=== PATIENT | male | born 1960 | race Caucasian/White ===

== ENCOUNTER 2016-10-22 07:24 | Emergency (ER) | payer OTHER ==
[~2016-10-22] VITALS: Ht 177.8 cm; Wt 81.4 kg
[~2016-10-22 07:24] MED LIST: ADAL40KI SQ; CHOL1000 PO; HYDR-4079 PO; METR-163 PO
[2016-10-22 07:27] VITALS: TEMP 36.7; Ht 177.8 cm; Wt 81.4 kg
[2016-10-22] MEDS ORDERED: HYDROmorphone INJ 1 MG/ML SYR IV STA (07:40)
[2016-10-22] MEDS ORDERED: SODIUM CHLORIDE 0.9% 1000ML 2,000 ML IV STA (07:40)
[2016-10-22] MEDS ORDERED: SODIUM CHLORIDE 0.9% 1000ML 1,000 ML IV STA (07:40)
[2016-10-22] MEDS ORDERED: ONDANSETRON 8 MG/54 ML D5W IV STA (07:40)
[2016-10-22 08:09] LABS: BASO % 0.4 %; BASO ABS # 0.04 K/uL (0-0.2); COMPLETE YES; EOS % 0.7 %; HEMATOCRIT 47.1 % (42-52); IG% 0.3 %; LYMPH % 18.8 %; LYMPH ABS # 2.02 K/uL (1.2-3.4); MEAN CELL VOLUME 91.3 fL (80-100); MEAN CORPUSCULAR HEMOGLOBIN 30.4 pg (25-34); MEAN CORPUSCULAR HGB CONC 33.3 g/dl (32-36); MEAN PLATELET VOLUME 9.8 fL (7.4-10.4); MONO % 7.1 %; NEUT % 72.7 %; PLATELET COUNT 275 K/uL (130-400); RED BLOOD COUNT 5.16 M/uL (4.7-6.1); WHITE BLOOD COUNT 10.76 K/uL (4.8-10.8)
[2016-10-22 08:27] LABS: CALCIUM 9.6 mg/dl (8.5-10.1); CREATININE 0.98 mg/dl (0.60-1.40); POTASSIUM 3.9 mmol/L (3.5-5.1)
[2016-10-22 08:29] LABS: ALB/GLOB RATIO 0.8 (0.9-2)
[2016-10-22] MEDS: HYDROmorphone INJ 0.5 MG/0.5 ML SYR IV PRN ×2 (08:29→09:44)
--- NOTE | 2016-10-22 09:23 | DIAGNOSTIC IMAGING REPORT ---
PA CHEST WITH ABDOMINAL SERIES CLINICAL HISTORY: Generalized abdominal pain. Nausea and vomiting. FINDINGS: A PA chest radiograph is compared to study dated 09/22/2013. The cardiomediastinal silhouette is unremarkable. There is minimal bibasilar atelectasis. The lungs and pleural spaces are otherwise clear. No pneumothorax is seen. The bony thorax is grossly intact. Supine and erect abdominal rate or grafts are compared to study dated 09/22/2013 and correlated with abdominal CT dated 10/10/2011. There is a nonobstructed abdominal bowel gas pattern. Scattered air-fluid levels are noted on the upright view. No evidence of intraperitoneal free air is seen. Suture material is noted in the right mid abdomen. There are no abnormal abdominal calcifications. The lumbosacral spine and bony pelvis appear intact. IMPRESSION: 1. No acute cardiopulmonary abnormality. 2. Nonobstructed abdominal bowel gas pattern. 3. Scattered air-fluid levels are nonspecific and could be seen in the setting of an enteritis. Clinical correlation will be required. Electronically signed by: Adams Ramos M.D. 10/22/2016 9:22 AM Dictated Date/Time: 10/22/2016 9:19 AM
--- NOTE | 2016-10-22 10:07 | EMERGENCY ROOM VISIT NOTE ---
History First contact with patient: 07:32 Chief Complaint: GI ASSESSMENT Stated Complaint: INTESTINAL BLOCKAGE Nursing Triage Summary: Pt. has chrons disease, he feels that he has a SBO. He is nauseated. He last ate at 1900 yesterday, he had diarrhea at 0500 today. History of Present Illness Patient is a 56-year-old white male with past medical history significant for Crohn's disease status post ileocolectomy and ileostomy reversal in a history of small bowel obstruction's who presents to the emergency department for evaluation of the abrupt onset of abdominal pain, nausea and vomiting roughly 6 hours ago. Patient reports that he had some minor pains of discomfort throughout the day yesterday, but otherwise eating normally, his last meal was around 7 PM last night. He woke with pain around 0 100 today. He noted nausea with multiple episodes of vomiting. He reports increased belching and feels like his abdomen is distended. He reports primarily lower abdominal discomfort , that he presently rates a 7/10. He had a bowel movement at around 5:00 this morning. He reports it was normal for him. He denies any melena, hematochezia or hematemesis. He did not have any medications at home to try to help alleviate his symptoms. He is on Humira and metronidazole chronically for his Crohn's and reports that he has been compliant with his medications. He has felt warm and had the chills, but did not record temperature with a thermometer. His last bowel obstruction was several years ago. Review of Systems Review of systems as per HPI. All other systems reviewed were negative. 10 systems reviewed. Past Medical/Surgical History Medical Problems: (1) Abrasion of right hand (2) Acute abdominal pain (3) Acute abdominal pain (4) Bronchitis (5) Crohns disease (6) Crohns disease (7) Fall from ladder (8) Fracture of left distal radius (9) Hx SBO (10) Leukocytosis (11) Perirectal abscess Surgical Problems: (1) History of bowel resection Electronic medical records are reviewed and summarized as above/below. See Problem List. Social History Smoking Status: Never Smoker Alcohol Use: occasionally Drug Use: none Marital Status: Occupation Status: employed Current/Historical Medications Scheduled Adalimumab (Humira Pen), 1 INJ SQ EVERY OTHER WEEK Cholecalciferol (Vitamin D3), 1 TABLET PO DAILY Metronidazole (Flagyl), 500 MG PO BID Scheduled PRN Hydrocodone/Acetaminophen 10MG/325MG ([place] 10MG/325MG), 1-2 TABS PO q 4-6 hours PRN for Pain Allergies Coded Allergies: Aspirin (Verified Allergy, Severe, HIVES, 10/22/16) Sulfa Antibiotics (Verified Allergy, Severe, HIVES, 10/22/16) Physical Exam Vital Signs Date Time Temp Pulse Resp B/P (MAP) Pulse Ox O2 Delivery O2 Flow Rate FiO2 10/22/16 10:59 77 14 133/76 98 10/22/16 09:39 75 16 157/84 97 10/22/16 08:33 72 16 167/90 100 Room Air 10/22/16 07:27 36.7 78 18 173/86 99 Room Air Physical Exam CONSTITUTIONAL: Patient is a uncomfortable appearing 56-year-old white male who is awake and alert and sitting upright on the gurney in moderate distress due to his stated complaint. EYES: Pupils equal, round, reactive to light and accommodation. EOMs intact without nystagmus. Sclera are anicteric. ENT: Tympanic membranes intact, with normal landmarks. External canals are clear. Oral and nasopharynx are clear. Mucous membranes are moist, no lesions , tongue and gums appear normal. CARDIOVASCULAR: Regular rate and rhythm, with normal S1 and S2, no murmur or gallop or rub is heard. No carotid bruits auscultated. No JVD. Peripheral pulses easily palpable. RESPIRATORY: Breath sounds equal and clear to auscultation without wheezes, rales, or rhonchi heard. Full and equal chest expansion without accessory muscle use or retractions. ABDOMEN: Bowel sounds are diminished. Multiple well-healed surgical scars are noted. Abdomen is distended, soft, diffusely tender throughout. INTEGUMENTARY: No lesions or rash, normal skin turgor. LYMPH: No lymphadenopathy. Medical Decision & Procedures ER Provider Diagnostic Interpretation: PA CHEST WITH ABDOMINAL SERIES CLINICAL HISTORY: Generalized abdominal pain. Nausea and vomiting. FINDINGS: A PA chest radiograph is compared to study dated 09/22/2013. The cardiomediastinal silhouette is unremarkable. There is minimal bibasilar atelectasis. The lungs and pleural spaces are otherwise clear. No pneumothorax is seen. The bony thorax is grossly intact. Supine and erect abdominal rate or grafts are compared to study dated 09/22/2013 and correlated with abdominal CT dated 10/10/2011. There is a nonobstructed abdominal bowel gas pattern. Scattered air-fluid levels are noted on the upright view. No evidence of intraperitoneal free air is seen. Suture material is noted in the right mid abdomen. There are no abnormal abdominal calcifications. The lumbosacral spine and bony pelvis appear intact. IMPRESSION: 1. No acute cardiopulmonary abnormality. 2. Nonobstructed abdominal bowel gas pattern. 3. Scattered air-fluid levels are nonspecific and could be seen in the setting of an enteritis. Clinical correlation will be required. Laboratory Results 10/22/16 07:50 Red Blood Count 5.16, Mean Corpuscular Volume 91.3, Mean Corpuscular Hemoglobin 30.4, Mean Corpuscular Hemoglobin Concent 33.3, Mean Platelet Volume 9.8, Neutrophils (%) (Auto) 72.7, Lymphocytes (%) (Auto) 18.8, Monocytes (%) (Auto) 7.1, Eosinophils (%) (Auto) 0.7, Basophils (%) (Auto) 0.4, Neutrophils # (Auto) 7.83, Lymphocytes # (Auto) 2.02, Monocytes # (Auto) 0.76, Eosinophils # (Auto) 0.08, Basophils # (Auto) 0.04 10/22/16 07:50 Test 10/22/16 07:50 White Blood Count 10.76 K/uL (4.8-10.8) Red Blood Count 5.16 M/uL (4.7-6.1) Hemoglobin 15.7 g/dL (14.0-18.0) Hematocrit 47.1 % (42-52) Mean Corpuscular Volume 91.3 fL (80-100) Mean Corpuscular Hemoglobin 30.4 pg (25-34) Mean Corpuscular Hemoglobin Concent 33.3 g/dl (32-36) Platelet Count 275 K/uL (130-400) Mean Platelet Volume 9.8 fL (7.4-10.4) Neutrophils (%) (Auto) 72.7 % Lymphocytes (%) (Auto) 18.8 % Monocytes (%) (Auto) 7.1 % Eosinophils (%) (Auto) 0.7 % Basophils (%) (Auto) 0.4 % Neutrophils # (Auto) 7.83 K/uL (1.4-6.5) Lymphocytes # (Auto) 2.02 K/uL (1.2-3.4) Monocytes # (Auto) 0.76 K/uL (0.11-0.59) Eosinophils # (Auto) 0.08 K/uL (0-0.5) Basophils # (Auto) 0.04 K/uL (0-0.2) RDW Standard Deviation 43.9 fL (36.4-46.3) RDW Coefficient of Variation 13.1 % (11.5-14.5) Immature Granulocyte % (Auto) 0.3 % Immature Granulocyte # (Auto) 0.03 K/uL (0.00-0.02) Anion Gap 7.0 mmol/L (3-11) Est Creatinine Clear Calc Drug Dose 87.9 ml/min Estimated GFR () 100.2 Estimated GFR (Non- 86.4 BUN/Creatinine Ratio 13.0 (10-20) Calcium Level 9.6 mg/dl (8.5-10.1) Total Bilirubin 0.9 mg/dl (0.2-1) Aspartate Amino Transf (AST/SGOT) 29 U/L (15-37) Alanine Aminotransferase (ALT/SGPT) 35 U/L (12-78) Alkaline Phosphatase 66 U/L (45-117) Total Protein 9.4 gm/dl (6.4-8.2) Albumin 4.1 gm/dl (3.4-5.0) Globulin 5.3 gm/dl (2.5-4.0) Albumin/Globulin Ratio 0.8 (0.9-2) Lipase 164 U/L (73-393) Medications Administered Medications (Trade) Dose Ordered Sig/Georgina Route Start Time Stop Time Status Last Admin Dose Admin Sodium Chloride 2,000 ml @ 999 mls/hr Q2H1M STAT IV 10/22/16 07:40 10/22/16 09:40 DC 10/22/16 07:40 999 MLS/HR Sodium Chloride 1,000 ml @ 250 mls/hr Q4H STAT IV 10/22/16 07:40 10/22/16 11:13 DC 10/22/16 07:56 250 MLS/HR Ondansetron HCl (Zofran 8mg Iv) 8 mg NOW STAT IV 10/22/16 07:40 10/22/16 07:42 DC 10/22/16 07:57 8 MG Hydromorphone HCl (Dilaudid Inj) 1 mg NOW STAT IV 10/22/16 07:40 10/22/16 07:42 DC 10/22/16 07:57 1 MG Hydromorphone HCl (Dilaudid Inj) 0.5 mg Q1HWA PRN IV 10/22/16 08:30 10/22/16 11:13 DC 10/22/16 09:44 0.5 MG ED Course The patient was seen and evaluated as above. His old records were reviewed. IV lock was initiated and he received a total of 3 L of normal saline solution for hydration. He was medicated with Zofran 8 mg IV with good relief of his nausea. He was given Dilaudid 1 mg IV 1, then received Dilaudid 0.5 mg IV every hour as needed for pain, total of 2 doses. Laboratory studies were collected including CBC with differential, CMP, lipase and urine dip. Acute abdominal series was performed. Laboratory studies demonstrated a normal white count of 10,700, H&H is normal. Electrolytes, liver functions and renal functions are without significant abnormality. Lipase is not indicative of acute pancreatitis. Urine dip noted trace ketones, trace WBCs, negative blood. Acute abdominal series demonstrated a nonobstructed abdominal bowel gas pattern. Scattered air-fluid levels were nonspecific, could be seen in the setting of an enteritis. There was no acute cardiopulmonary abnormality. The patient was reassessed frequently, and gradually had improvement in his symptoms. He is a 56-year-old female with a history of Crohn's who presents to the emergency department for evaluation of abdominal pain, nausea, distention and vomiting times roughly 6 hours. His white count is elevated. He is afebrile. X-ray does not overtly indicative of obstructive pattern, however given the patient's history, I discussed that an early obstruction could still be possible. He was hydrated aggressively, and had good relief of his symptoms with IV Dilaudid and Zofran. His vital signs are stable. Treatment options were discussed with him, and he does not wish to stay in the hospital. He reports that he is well versed with his symptoms, and conservative management. He states that he has managed to recover from symptoms similar to this in the past, and he states that he will not eat for a few days, then start on a liquid diet. He does have hydrocodone at home reportedly, he declined any prescription antibiotics. His symptoms appear consistent with a Crohn's exacerbation, possibly an early partial small bowel obstruction. I do not suspect perforation, abscess or fistula. The patient was educated on the worrisome signs or symptoms for which he should return to the emergency department. He was discharged to home in good condition with his driving. He rated his pain a 0/10 at discharge. Medication reconciliation: I attest that I have personally reviewed the patient' s current medication list. Blood pressure screening: Patient was found to have a slightly elevated blood pressure due to circumstances, which improved with hydration and analgesia. I do not believe that the patient requires hypertension monitoring. Medical Decision See Emergency Department course. Impression Primary Impression: Nausea & vomiting Additional Impression: Abdominal pain Departure Information Referrals Denzel Pabon M.D. (PCP) Patient Instructions My [facility] Additional Instructions DO NOT drive, drink alcohol, operate machinery, or perform dangerous activities today. You were given medications in the ER that can affect your ability to safely function or operate a vehicle. Rest and drink plenty of fluids as tolerated. Slow sips of water or sports drinks are recommended instead of large amounts all at once. Continue current medications. Once your stomach is settled start with a clear liquid diet (jello, soup broth, etc.) and then advance as tolerated. You should avoid full, heavy meals for about 24 hrs from the time your symptoms resolved. Return to the ER for persistent vomiting, fevers, abdominal pain, chest pains, difficulty breathing, black or bloody stools, worsening of your condition, or as needed. Follow up with your primary physician in 2-3 days for a recheck of your current condition. Problem Qualifiers Primary Impression: Nausea & vomiting Vomiting type: unspecified Vomiting Intractability: non-intractable Qualified Codes: R11.2 - Nausea with vomiting, unspecified Additional Impression: Abdominal pain Abdominal location: generalized Qualified Codes: R10.84 - Generalized abdominal pain
[2016-10-22 10:59] VITALS: BP 133/76; PULSE 77; O2SAT 98
== END 2016-10-22 11:01 | disposition home or self-care (01) ==
LOC: C.EDB 07:25
DX: R11.2 Nausea with vomiting, unspecified (principal); R10.84 Generalized abdominal pain; K50.90 Crohn's disease, unspecified, without complications; Z79.899 Other long term (current) drug therapy; Z87.09 Personal history of other diseases of the respiratory system; Z87.828 Personal history of other (healed) physical injury and trauma

== ENCOUNTER 2022-09-10 16:33 | Inpatient (IN) ==
--- NOTE | 2022-09-10 16:44 | ED Triage Note ---
Date of Service September 10, 2022 History of Present Illness This patient was briefly evaluated while in triage. An abbreviated physical exam was performed. This patient is a 62-year-old Male who presents to the ED for evaluation of an abnormal CT scan. He has had constipation and some abdominal distention. He had a CT today that showed a potential obstruction and he was referred here. Physical Exam VITALS: Vitals are noted on the nurse's note and reviewed by myself. GENERAL: This is a 62-year-old male, in no acute distress, nondiaphoretic, well- developed well-nourished. SKIN: The skin was without rashes, erythema, edema, or bruising. HEAD: Normocephalic atraumatic. EARS: External auditory canals clear, tympanic membranes pearly lozano without erythema or effusion bilaterally. EYES: Pupils equal round and reactive to light and accommodation. Conjunctivae without injection, sclerae without icterus. Extraocular movements intact. NOSE: Patent, turbinates without inflammation or discharge. No sinus tenderness. MOUTH: Mucous membranes moist. Tonsils are not enlarged. Pharynx without erythema or exudate. Uvula midline. Airway patent. Tongue does not deviate. NECK: Supple without nuchal rigidity. No lymphadenopathy. No thyromegaly. Cervical spine is nontender. No JVD. HEART: Regular rate and rhythm without murmurs gallops or rubs. LUNGS: Clear to auscultation bilaterally without wheezes, rales or rhonchi. No dullness to percussion. No retractions or accessory muscle use. ABDOMEN: Positive bowel sounds x 4. Normal tympanic percussion. Soft, nontender, without masses or organomegaly. Collins sign negative. No guarding or rebound tenderness. MUSCULOSKELETAL: No muscle atrophy, erythema, or edema noted. Full range of motion without joint tenderness in all extremities. No tenderness to palpation. Normal gait. Strength 5/5 throughout. NEURO: Patient was alert and oriented to person place and time. Normal sensation to light and sharp touch. Deep tendon reflexes 2+ throughout. No focal neurological deficits. Initial orders for labs and / or imaging were placed and patient was placed in the waiting area until a bed is available. Please see further documentation for the full ED course.
[2022-09-10 17:33] LABS: Basophils # (auto) 0.04 K/uL (0-0.2); Basophils % (auto) 0.5 %; Eosinophils # (auto) 0.09 K/uL (0-0.50); Hematocrit (blood only) 35.5 % (42.0-52.0); Hemoglobin 11.6 g/dl (14.0-18.0); Immature Granulocytes # (auto) 0.02 K/uL (0.01-0.20); Immature Granulocytes % (auto) 0.2 %; Lymphocytes # (auto) 2.53 K/uL (1.2-3.4); Lymphocytes % (auto) 28.8 %; Mean Corpuscular Hemoglobin 27.9 pg (25.0-34.0); Mean Corpuscular Hgb Conc 32.7 g/dL (32.0-36.0); Mean Corpuscular Volume 85.3 fL (80.0-100.0); Mean Platelet Volume 10.1 fL (9.4-12.4); Monocytes # (auto) 1.02 K/uL (0.11-0.59); Monocytes % (auto) 11.6 %; Neutrophils # (auto) 5.09 K/uL (1.40-6.50); Neutrophils % (auto) 57.9 %; Platelet Count 315 K/uL (130-400); RDW Coefficient of Variation 13.3 % (11.5-14.5); Red Blood Count 4.16 M/uL (4.70-6.10); White Blood Count 8.79 K/ul (4.8-10.8)
[2022-09-10 17:54] LABS: Albumin Level 3.8 gm/dl (3.4-5.0); Bilirubin,Total 0.7 mg/dl (0.2-1.0); Calcium 8.9 mg/dl (8.6-10.3); Potassium 4.1 mmol/L (3.5-5.1)
--- NOTE | 2022-09-10 17:58 | Emergency Department Note ---
ED Provider Note History of Present Illness Chief Complaint: Referred by Doctor Stated Complaint: REF BY DOC, Time Seen by Provider: 09/10/22 17:22 Source: patient Mode of arrival: ambulatory Limitations: no limitations This patient is a 62-year-old male who presents to the emergency department for evaluation of a bowel obstruction. Patient reports a history of Crohn's disease. He is currently on Humira and has been well controlled on this for several years. He had a bowel resection in the and has a history of fistulas, but nothing recently. Over the past 8 months, he has been having some flareups of his Crohn's symptoms including abdominal distention, belching etc. He states that when he develops the symptoms he usually stops eating for a few d ays and feels better. He has cut milk out of his diet as he felt that dairy may be exacerbating his symptoms. Over the past 3 weeks, the patient has been constipated and has not had a normal bowel movement in the time. He has tried MiraLAX without relief. He has developed some abdominal distention starting last night. He contacted his environmental research scientist and they ordered outpatient imaging. They sent him here after he had the CT scan due to findings suggesting a large bowel obstruction. Home Medications Medication Instructions Recorded Confirmed Type adalimumab 40 mg/0.8 mL 40 mg subcut DIRECTED 04/11/18 04/11/18 History subcutaneous syringe kit (Humira) cholecalciferol (vitamin D3) 25 1,000 unit PO DAILY 04/11/18 04/11/18 History mcg (1,000 unit) capsule (Vitamin D3) hydrocodone 10 mg-acetaminophen 1 tab PO DIRECTED PRN Pain 04/11/18 04/11/18 History 325 mg tablet ([place]) ondansetron 4 mg disintegrating 4 mg PO Q6H PRN nausea and 04/11/18 Rx tablet vomiting #20 tabs Allergies Allergy/AdvReac Type Severity Reaction Status Date / Time aspirin Allergy Severe HIVES Verified 04/11/18 15:01 Sulfa (Sulfonamide Allergy Severe HIVES Verified 04/11/18 15:01 Antibiotics) Past Med/Surg History Medical History Abdominal fistula Bronchitis Crohns disease Family History Other Family history non-contributory Social History Smoking Status: Never smoker Hx Alcohol Use: Yes Alcohol type: beer Hx Substance Use: No Preferred Language: German Communication Ability: Effective 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 Beliefs That Will Affect Care: None Current Living Situation: Significant Other Current Living Situation Comment: with fiance Other Information That Helps Us Care for You: No Feels Safe at Home: Yes Safety Concerns: Feels Safe At This Time Assistive Devices: Denture - Upper, Glasses and Hearing Aid - Bilateral Physical Exam Vital Signs Vital Signs - 24 hr 09/10/22 16:41 09/10/22 17:56 Temperature 36.8 C Temperature Source Temporal Artery Scan Pulse Rate 89 Pulse Rate [Apical] 77 Respiratory Rate 20 16 Respiratory Effort / Characteristics Non-Labored Spontaneous Non-Labored Spontaneous Respiratory Depth Normal Normal Respiratory Pattern Regular Blood Pressure 148/97 H Blood Pressure [Left Arm] 157/83 H Blood Pressure Mean 114 Blood Pressure Mean [Left Arm] 107 Pulse Oximetry 97 98 Oxygen Delivery Method Room Air Room Air Sepsis Recent Fever Within 48 Hours No Sepsis New/Unexplained Change in Mental Status No Sepsis Action Taken by Nursing No Action Required VITALS: Vitals are noted on the nurse's note and reviewed by myself. GENERAL: This is a 62-year-old male, in no acute distress, nondiaphoretic, well- developed well-nourished. SKIN: The skin was without rashes. MOUTH: Mucous membranes moist. HEART: Regular rate and rhythm without murmurs gallops or rubs. LUNGS: Clear to auscultation bilaterally without wheezes, rales or rhonchi. ABDOMEN: Positive bowel sounds x 4. Abdomen appears slightly distended. Abdomen is soft and nontender to palpation. No guarding or rebound tenderness. NEURO: Patient was alert and oriented to person place and time. Course Administered Medications Sodium Chloride (Nss 1000ml) 1,000 mls @ 100 mls/hr IV .Q10H GRETCHEN Stop: 10/10/22 21:29 Last Admin: 09/10/22 21:37 Dose: 100 mls/hr Documented By: MAC Morphine Sulfate (Morphine Sulfate 2 Mg/Ml Carp) 2 mg IV Q4 PRN PRN Reason: Pain Stop: 09/24/22 21:29 Last Admin: 09/11/22 00:08 Dose: 2 mg Documented By: MAC Discontinued Medications Morphine Sulfate (Morphine Sulfate 4 Mg/Ml 1 Ml Carp\\Vial) 4 mg IV NOW STA Stop: 09/10/22 20:25 Last Admin: 09/10/22 20:29 Dose: 4 mg Documented By: YASEMIN Medical Decision Making Differential Diagnosis Appendicitis, testicular torsion, infections, diverticulitis, UTI, obstruction, mesenteric ischemia, aortic pathology, inflammatory bowel disease, renal colic, PUD, pancreatitis, biliary pathology, hernia, volvulus, constipation, as well as other pathologies. Medical Records Attestation: I reviewed the patient's medical records. Additional Comments: Outside imaging reviewed. Patient had a CT scan of the abdomen/pelvis today which showed "the colon is diffusely distended with a large colonic stool burden, with change in caliber of the colon near the rectosigmoid junction at the site of an intraluminal rounded lamellated calcification at the rectosigmoid junction measuring approximately 2.9 x 2.6 cm. Question whether this calcification is causing a degree of intermittent or partial colonic obstruction. Mild wall thickening involving the rectosigmoid colon, similar to the prior exam, likely sequela of chronic inflammation in the setting of known inflammatory bowel disease. This appearance could potentially also represent a component of acute colitis." Home Medications was personally reviewed by me Laboratory Data Attestation: I reviewed the patient's lab results. 09/10/22 17:15 09/10/22 17:15 Lab Results 09/10/22 09/10/22 09/10/22 Range/Units 17:15 17:15 17:15 WBC 8.79 (4.8-10.8) K/ul RBC 4.16 L (4.70-6.10) M/uL Hgb 11.6 L (14.0-18.0) g/dl Hct 35.5 L (42.0-52.0) % MCV 85.3 (80.0-100.0) fL MCH 27.9 (25.0-34.0) pg MCHC 32.7 (32.0-36.0) g/dL RDW Std Deviation 41.0 (36.4-46.3) fL RDW Coeff of Rajiv 13.3 (11.5-14.5) % Plt Count 315 (130-400) K/uL MPV 10.1 (9.4-12.4) fL Immature Gran % (Auto) 0.2 % Neut % (Auto) 57.9 % Lymph % (Auto) 28.8 % [place] % (Auto) 11.6 % Eos % (Auto) 1.0 % Baso % (Auto) 0.5 % Neut # (Auto) 5.09 (1.40-6.50) K/uL Lymph # (Auto) 2.53 (1.2-3.4) K/uL [place] # (Auto) 1.02 H (0.11-0.59) K/uL Eos # (Auto) 0.09 (0-0.50) K/uL Baso # (Auto) 0.04 (0-0.2) K/uL Immature Gran # (Auto) 0.02 (0.01-0.20) K/uL ESR 28 H (0-20) mm/hr Sodium 135 L (136-145) mmol/L Potassium 4.1 (3.5-5.1) mmol/L Chloride 101 (98-107) mmol/L Carbon Dioxide 27 (21-32) mmol/L Anion Gap 7 (3-11) BUN 15 (6-23) mg/dl Creatinine 0.79 (0.6-1.4) mg/dl Est Cr Clr Drug Dosing 101.4 ml/min Est GFR ( Amer) 112.3 ml/min Est GFR (Non-Af Amer) 96.9 ml/min BUN/Creatinine Ratio 19.0 (10-20) Glucose 84 (70-99(Fasting)) mg/dl Calcium 8.9 (8.6-10.3) mg/dl Total Bilirubin 0.7 (0.2-1.0) mg/dl AST 19 (13-39) U/L ALT 15 (7-52) U/L Alkaline Phosphatase 78 (34-104) U/L C-Reactive Protein (0-0.5) mg/dl Total Protein 7.2 (6.0-8.3) gm/dl Albumin 3.8 (3.4-5.0) gm/dl Globulin 3.4 (2.5-4.0) gm/dl Albumin/Globulin Ratio 1.1 (0.9-2) Lipase 18 (11-82) U/L SARS-CoV-2, RNA, NAAT (NEGATIVE) 09/10/22 09/10/22 Range/Units 17:15 18:10 WBC (4.8-10.8) K/ul RBC (4.70-6.10) M/uL Hgb (14.0-18.0) g/dl Hct (42.0-52.0) % MCV (80.0-100.0) fL MCH (25.0-34.0) pg MCHC (32.0-36.0) g/dL RDW Std Deviation (36.4-46.3) fL RDW Coeff of Rajiv (11.5-14.5) % Plt Count (130-400) K/uL MPV (9.4-12.4) fL Immature Gran % (Auto) % Neut % (Auto) % Lymph % (Auto) % [place] % (Auto) % Eos % (Auto) % Baso % (Auto) % Neut # (Auto) (1.40-6.50) K/uL Lymph # (Auto) (1.2-3.4) K/uL [place] # (Auto) (0.11-0.59) K/uL Eos # (Auto) (0-0.50) K/uL Baso # (Auto) (0-0.2) K/uL Immature Gran # (Auto) (0.01-0.20) K/uL ESR (0-20) mm/hr Sodium (136-145) mmol/L Potassium (3.5-5.1) mmol/L Chloride (98-107) mmol/L Carbon Dioxide (21-32) mmol/L Anion Gap (3-11) BUN (6-23) mg/dl Creatinine (0.6-1.4) mg/dl Est Cr Clr Drug Dosing ml/min Est GFR ( Amer) ml/min Est GFR (Non-Af Amer) ml/min BUN/Creatinine Ratio (10-20) Glucose (70-99(Fasting)) mg/dl Calcium (8.6-10.3) mg/dl Total Bilirubin (0.2-1.0) mg/dl AST (13-39) U/L ALT (7-52) U/L Alkaline Phosphatase (34-104) U/L C-Reactive Protein < 0.50 (0-0.5) mg/dl Total Protein (6.0-8.3) gm/dl Albumin (3.4-5.0) gm/dl Globulin (2.5-4.0) gm/dl Albumin/Globulin Ratio (0.9-2) Lipase (11-82) U/L SARS-CoV-2, RNA, NAAT NEGATIVE (NEGATIVE) MDM Narrative The patient is a 62-year-old male who presents today complaining of constipation and abdominal distention. Labs revealed no leukocytosis, significant anemia or concerning electrolyte abnormalities. Outpatient CT scan was reviewed as above and shows findings suggestive of a large bowel obstruction. I did speak with Cherri Fairchild, who had sent the patient in and she recommended admission with inpatient GI and general surgery consultations. I spoke with [facility], Dr. Kaplan who agreed to evaluate the patient for further care. I also spoke with general surgery, Otis Gonzales PA-C who evaluated the patient in the emergency department. Impression Large bowel obstruction Discharge Plan Visit Data Chief Complaint: Referred by Doctor Stated Complaint: REF BY DOC, ED Provider: [facility] ED Midlevel Provider: Radha Lennon Discharge Problem: Large bowel obstruction Patient Disposition: Admitted As Inpatient Discharge Instructions Interventions: ED Discharge Assessment Last Done: 09/10/22 21:15
[2022-09-10 18:00] LABS: Albumin Globulin Ratio 1.1 (0.9-2); Creatinine Clr Calc Pharmacy 101.4 ml/min; Est GFR (African American) 112.3 ml/min; Est GFR (Non-African American) 96.9 ml/min; Globulin 3.4 gm/dl (2.5-4.0); Total Protein 7.2 gm/dl (6.0-8.3)
--- NOTE | 2022-09-10 19:46 | History & Physical Report ---
Date of Service September 10, 2022 Assessment & Plan (1) Large bowel obstruction: Plan: NPO, IV fluids Consult GI Appreciate Surgery input (2) Crohns disease: Plan: On Humira Plan Medication Reconciliation -Review and order home medications once list has been updated DVT ppx SCDs for now in event patient needs surgery History of Present Illness Chief Complaint: abnormal outpatient imaging Primary Care Provider: Denzel Pabon MD Mr Catarino Wheeler is a 62 year old man with history of Crohn's disease currently on Humira was sent in for outpatient imaging today which showed colonic obstruction. Patient reports his Crohn's has been well managed on Humira. He reports having a history of intermittent constipation since May. For the past 3 weeks his constipation has worsened and he has not had a significant bowel movement. He was sent to have a CT A/P with IV and oral contrast today which revealed "the colon is diffusely distended with a large colonic stool burden with change in caliber of the colon near the rectosigmoid junction at the site of a intraluminal rounded lamellated calcification at rectosigmoid junction measuring 2.9 x 2.6cm...." He was sent to the ER by GI. He has otherwise been in his usual state of health. ER course- No medications given Allergies Allergy/AdvReac Type Severity Reaction Status Date / Time aspirin Allergy Severe HIVES Verified 04/11/18 15:01 Sulfa (Sulfonamide Allergy Severe HIVES Verified 04/11/18 15:01 Antibiotics) Home Medications Medication Instructions Recorded Confirmed Type adalimumab 40 mg/0.8 mL 40 mg subcut DIRECTED 04/11/18 04/11/18 History subcutaneous syringe kit (Humira) cholecalciferol (vitamin D3) 25 1,000 unit PO DAILY 04/11/18 04/11/18 History mcg (1,000 unit) capsule (Vitamin D3) hydrocodone 10 mg-acetaminophen 1 tab PO DIRECTED PRN Pain 04/11/18 04/11/18 History 325 mg tablet ([place]) ondansetron 4 mg disintegrating 4 mg PO Q6H PRN nausea and 04/11/18 Rx tablet vomiting #20 tabs Past Med/Surg History Medical History Abdominal fistula Bronchitis Crohns disease Family History Other Family history non-contributory Social History Smoking Status: Never smoker Feels Safe at Home: Yes Review of Systems Review of Systems: As above in HPI. Remaining ROS otherwise negative Physical Exam Physical Exam: Appears well, non toxic, no acute distress ENMT: Head normocephalic, atraumatic, mucous membrane moist Respiratory: Clear bilaterally, no wheezing/rhonchi/rales Cardiovascular: Regular rate and rhythm, no murmurs/rubs/gallops Gastrointestinal (Abdomen): Hyperactive bowel sounds, soft, non distended Musculoskeletal: No cyanosis no edema no clubbing Skin: No rash, no redness, no ulcer noted on exposed skin Neurologic: Awake, alert, spontaneously moving extremities Psychiatric: Normal affect, speech linear, non pressured Results & Data Results & Data Vital Signs (Past 12 Hours) Vital Signs Temp Pulse Pulse Resp BP BP Pulse Ox 09/10/22 17:56 77 16 157/83 H 98 09/10/22 16:41 36.8 C 89 20 148/97 H 97 O2 Del Method 09/10/22 17:56 Room Air 09/10/22 16:41 Room Air
[2022-09-10] MEDS ORDERED: MoRPHine SULFATE 4 MG/ML 1 ML CARP\\VIAL IV STA (20:24)
--- NOTE | 2022-09-10 20:25 | Surgery Consultation ---
Date of Consultation September 10, 2022 Assessment & Plan (1) Large bowel obstruction: The patient has been admitted on the hospitalist service. His care will continue as follows: Gastroenterology consultation is to be obtained. We will await gastroenterology recommendations to see if patient requires a repeat colonoscopy or some other type of modality to evaluate his abnormal CT scan At the present time the patient is normotensive without tachycardia or significant abdominal complaints. He also does not exhibit leukocytosis. I therefore do not feel he needs any urgent surgical intervention. The patient does note that he follows with colorectal strategy specialist at [facility] in [place] so if the patient would require any surgical invention it may be best for him to follow with his colorectal surgeon We will await gastroenterology recommendations with further recommendations to follow based on the patient's clinical course as History of Present Illness Reason for Consultation: No constipation History of Present Illness This is a 62-year-old male with a underlying history of Crohn's disease. The patient says that he has had Crohn's for approximately 50 years. The patient currently takes Humira and receives this medication every 2 weeks. His most recent dose was 10 days ago. The patient was sent to the emergency department for evaluation secondary to an abnormal CAT scan by his gastroenterology team. The patient does follow locally with [facility] gastroenterology and typically sees Dr. Dawkins. The patient reports that he has had approximately 3 weeks of constipation. He is having minimal bowel movements that are mostly liquid. He is passing flatus however. He denies any abdominal distention and specifically denies any nausea or vomiting. He does feel some abdominal pressure/bloating. He denies any bright red blood per rectum. Because of the symptoms the patient was sent for an outpatient CT scan by his gastroenterology team. I do not have the actual images to view but I did have a CT scan report which showed that patient had a distended colon with significant stool burden. There is also calcification measuring 2.9 x 2.6 cm at the rectosigmoid junction which was concerning for partial colon obstruction. There is also thickening of the rectosigmoid colon with some chronic inflammation versus acute colitis. On this study the small bowel appeared normal. As noted above because of these findings the patient was sent in by his gastroenterology team for further evaluation. The patient does deny any fevers, shakes, or chills. The patient has had prior abdominal surgerieshe has required a exploratory laparotomy with small bowel resection [place] [address] Singh secondary to a perforation. He re ports that he did have his ileostomy reversed approximately 3 weeks later. In addition the patient has had fistulas for which she has had setons placed. The patient also has had his most recent colonoscopy in June of this year and at this time he reports that there were no colonic masses noted Since arrival to the emergency department the patient has had labs performed. CBC revealed white blood cell count and platelet count were within normal range. Hemoglobin and hematocrit were 11.6 and 35.5. The patient did have an elevated erythrocyte sedimentation rate at 28. Chemistry profile showed sodium was 135. His potassium, BUN, and creatinine were all within normal range. There is no elevation of patient's LFTs or lipase. A COVID test was negative. At the time my interview he was resting comfortably in bed he was in no distress. Allergies Allergy/AdvReac Type Severity Reaction Status Date / Time aspirin Allergy Severe HIVES Verified 04/11/18 15:01 Sulfa (Sulfonamide Allergy Severe HIVES Verified 04/11/18 15:01 Antibiotics) Home Medications Medication Instructions Recorded Confirmed Type adalimumab 40 mg/0.8 mL 40 mg subcut DIRECTED 04/11/18 04/11/18 History subcutaneous syringe kit (Humira) cholecalciferol (vitamin D3) 25 1,000 unit PO DAILY 04/11/18 04/11/18 History mcg (1,000 unit) capsule (Vitamin D3) hydrocodone 10 mg-acetaminophen 1 tab PO DIRECTED PRN Pain 04/11/18 04/11/18 History 325 mg tablet ([place]) ondansetron 4 mg disintegrating 4 mg PO Q6H PRN nausea and 04/11/18 Rx tablet vomiting #20 tabs Patient History Medical History Abdominal fistula Bronchitis Crohns disease Family History Other Family history non-contributory Social History Smoking Status: Never smoker Feels Safe at Home: Yes Review of Systems Constitutional: no fever and no chills Ear, Nose, Mouth, Throat: no ear pain Respiratory: no cough and no dyspnea Cardiovascular: no chest pain Gastrointestinal: as per Subjective / HPI Genitourinary: no dysuria Musculoskeletal: no back pain Integumentary: no rash Neurologic: no localized weakness Physical Exam Constitutional: WD/WN, vitals as above Eyes: no conjunctival abnormality ENMT: Ears: no hearing impairment and no external ear abnormality Mouth: no oropharynx abnormality Neck: trachea midline Respiratory: normal respiratory effort; no respiratory distress and no labored breathing Cardiovascular: Rate/Rhythm: regular rate and regular rhythm Gastrointestinal (Abdomen): Abdomen is soft, nonrigid, nondistended. Bowel sounds are present. The patient had a well-healed incision from her previous midline laparotomy. He also had a well-healed site where his ileostomy was previously in place. There is no pain with palpation. There is no rebound tenderness or guarding. Musculoskeletal: No calf tender Skin: no rashes Neurologic: moves all extremities Results & Data Vital Signs (Past 12 Hours) Vital Signs Temp Pulse Pulse Resp BP BP Pulse Ox 09/10/22 20:04 78 18 157/94 H 99 09/10/22 17:56 77 16 157/83 H 98 09/10/22 16:41 36.8 C 89 20 148/97 H 97 O2 Del Method 09/10/22 20:04 Room Air 09/10/22 17:56 Room Air 09/10/22 16:41 Room Air PG Care Time/CCT Total # of Minutes Spent Total Time Spent with Patient: Total time spent is greater than 50% in coordination of care (as documented) at patient's floor/unit and/or counseling patient: Coding Level of Care Code 57044 IN/OBS CONSULT LVL 5,80M Diagnoses Large bowel obstruction K56.609
[2022-09-10] MEDS ORDERED: ONDANSETRON INJ 2 MG/ML 2 ML VIAL IV PRN (21:30)
[2022-09-10] MEDS ORDERED: ACETAMINOPHEN 325 MG TAB PO PRN (21:30)
[2022-09-10] MEDS: SODIUM CHLORIDE 0.9% 1000ML 1,000 ML IV SCH (21:37)
[2022-09-11] MEDS: MoRPHine SULFATE 2 MG/ML CARP IV PRN ×3 (00:08→20:57)
[2022-09-11] MEDS: SODIUM CHLORIDE 0.9% 1000ML 1,000 ML IV SCH ×2 (06:23→17:26)
--- NOTE | 2022-09-11 07:12 | Gastrointestinal Consultation ---
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 Otherwise NPO. Further recommendations to follow colonoscopy. Supervising Physician Co-Signing Physician Notes I performed a history and physical examination of the patient today, including specifically on physical exam - soft abdomen. I have discussed the patient's management with the advanced practitioner. Please refer to the nurse practitioner's note for the documented findings and plan of care. Colonoscopy tomorrow. History of Present Illness Reason for Consultation: large bowel obstruction. Crohn's Requesting Physician: Dr. Kaplan Attending Physician: Sean Kaplan MD History of Present Illness Mr. Catarino Wheeler is a 62 yr old male pt of Dr. Betty paredes a hx of Crohn's followed by Cherri Fairchild NP. He has had this disease since age 17, underwent prior ileocecal resection (2014), had perianal dx w stetons, colon dilation also in 2014, currently maintained on Humira. He recently underwent colonoscopy w anal stricture and CT yesterday w a suggestion of a 3cm mass in the rectosigmoid area w upstream intermittent/partial colon obstruction. Since May, he has had episodes of constipation, lasting up to a few weeks. Currently, he is constipated, passing only very small loose BMs, a few x/day, w/o blood in BMs. He is maintained on 2 miralax daily and has tried 4 MIralax/4 dulcolax w/o effect. He has bloating adn generalized abdominal discomfort. Most recent colonoscopy by Dr. Mendoza on 07/10/22: Anal stricture, ultra thin scope used, stenosis at the end to side ileocolonic anastomosis, congested mucosa entire colon. Path at anastomosis acute/chronic inflammation; left and right colon bx w mild chronic changed, no active colitic. Allergies Allergy/AdvReac Type Severity Reaction Status Date / Time aspirin Allergy Severe HIVES Verified 04/11/18 15:01 Sulfa (Sulfonamide Allergy Severe HIVES Verified 04/11/18 15:01 Antibiotics) Home Medications Medication Instructions Recorded Confirmed Type adalimumab 40 mg/0.8 mL 40 mg subcut DIRECTED 04/11/18 04/11/18 History subcutaneous syringe kit (Humira) cholecalciferol (vitamin D3) 25 1,000 unit PO DAILY 04/11/18 04/11/18 History mcg (1,000 unit) capsule (Vitamin D3) hydrocodone 10 mg-acetaminophen 1 tab PO DIRECTED PRN Pain 04/11/18 04/11/18 History 325 mg tablet (Delmar) ondansetron 4 mg disintegrating 4 mg PO Q6H PRN nausea and 04/11/18 Rx tablet vomiting #20 tabs Patient History Medical History Abdominal fistula Bronchitis Crohns disease Family History Other Family history non-contributory Social History Smoking Status: Never smoker Hx Alcohol Use: Yes Alcohol type: beer Hx Substance Use: No Preferred Language: Kyrgyz Communication Ability: Effective 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: No Beliefs That Will Affect Care: None Current Living Situation: Significant Other Current Living Situation Comment: with fiance Other Information That Helps Us Care for You: No Feels Safe at Home: Yes Safety Concerns: Feels Safe At This Time Assistive Devices: None Review of Systems Review of Systems: ROS: Gen: Denies weakness, fevers, weight loss Eyes: No eye redness, or pain, no recent vision changes Resp: No SOB, no cough Cardio: No palpitations/irregular beats, no chest pain GI: As per HPI, otherwise (-) : Denies pain on urination Skin: No jaundice, itching or new rashes Physical Exam Constitutional: WD/WN, vitals as above Eyes: PERRL, conjunctivae normal, anicteric sclerae ENMT: external ear and nose normal, oropharynx normal Neck: trachea midline, no thyromegaly Respiratory: normal respiratory effort, lungs clear to auscultation Cardiovascular: RRR, no murmur, no edema Gastrointestinal (Abdomen): mild distention, soft, diffuse tenderness, no palpable masses. Skin: no rashes, warm and dry Neurologic: PERRL, EOMI, accommodation nl, no face palsy, no dysarthria Psychiatric: A+Ox3, euthymic affect Lymphatic: no cervical or axillary lymphadenopathy Results & Data Vital Signs (Past 12 Hours) Vital Signs Temp Pulse Pulse Pulse Resp BP BP 09/11/22 04:00 36.5 C 63 18 114/67 09/10/22 21:30 71 09/11/22 00:41 79 09/10/22 22:00 37.0 C 78 18 152/80 H 09/10/22 21:15 09/10/22 20:45 74 09/10/22 20:04 78 18 157/94 H Pulse Ox O2 Del Method 09/11/22 04:00 97 Room Air 09/10/22 21:30 09/11/22 00:41 09/10/22 22:00 99 Room Air 09/10/22 21:15 Room Air 09/10/22 20:45 09/10/22 20:04 99 Room Air Laboratory Results WBC 7, Hb 10, Hct 32, Plts 148, Na 137, K 4.3, CL 104, CO2 28, BUN 14, Cr 0.8 Diagnostic Findings CTAP 09/10 w IV/oral on 09/10/22 done at [facility] reviewed: 1. The colon is diffusely distended with a large colonic stool burden, with change in caliber of the colon near the rectosigmoid junction at the site of an intraluminal rounded lamellated calcification at the rectosigmoid junction measuring approximately 2.9 x 2.6 cm. Question whether this calcification is causing a degree of intermittent or partial colonic obstruction. 2. Mild wall thickening involving the rectosigmoid colon, similar to the prior exam, likely sequela of chronic inflammation in the setting of known inflammatory bowel disease. This appearance could potentially also represent a component of acute colitis. 3. Normal caliber small bowel. 4. Focus of linear soft tissue thickening extending posteriorly from the rectosigmoid colon to the presacral space, not significantly changed, likely chronic scarring/tethering. 5. A hypodense left hepatic lobe lesion measures approximately 2.5 cm, not significantly changed but indeterminate. Recommend MR abdomen with and without contrast for further evaluation. 6. Coronary artery calcifications.
[2022-09-11 07:27] LABS: Hemoglobin 11.5 g/dl (14.0-18.0); Mean Corpuscular Hemoglobin 27.1 pg (25.0-34.0); Mean Corpuscular Hgb Conc 31.1 g/dL (32.0-36.0); Mean Corpuscular Volume 87.3 fL (80.0-100.0); Mean Platelet Volume 10.4 fL (9.4-12.4); Platelet Count 321 K/uL (130-400); RDW Coefficient of Variation 13.3 % (11.5-14.5); RDW Standard Deviation 41.4 fL (36.4-46.3); Red Blood Count 4.24 M/uL (4.70-6.10); White Blood Count 7.62 K/ul (4.8-10.8)
[2022-09-11 07:47] LABS: Albumin Globulin Ratio 1.1 (0.9-2); Albumin Level 3.8 gm/dl (3.4-5.0); BUN Creatinine Ratio 16.9 (10-20); Bilirubin,Total 0.8 mg/dl (0.2-1.0); Calcium 9.1 mg/dl (8.6-10.3); Creatinine Clr Calc Pharmacy 96.5 ml/min; Est GFR (African American) 110.1 ml/min; Globulin 3.4 gm/dl (2.5-4.0); Potassium 4.3 mmol/L (3.5-5.1); Total Protein 7.2 gm/dl (6.0-8.3)
[2022-09-11 08:04] LABS: Prothrombin Time 10.9 Seconds (9.0-12.0)
--- NOTE | 2022-09-11 08:29 | Surgery Progress Note ---
Date of Service September 11, 2022 Assessment & Plan (1) Crohns disease: Plan: Suspect he has Crohn's stricture. Awaiting GI consultation. Suspect they will perform a repeat sigmoidoscopy. It would be helpful during the sigmoidoscopy if they could tattoo proximal and distal to the stricture as well as attempt to get accurate measurement regarding distance from the anus. We will follow along from the periphery at this point. No acute indications for surgical inte rvention (2) Large bowel obstruction: Admission and Anticipated Discharge Date Admission Date: September 10, 2022 Subjective Patient seen. Having some lower abdominal cramping but not severe currently. Has well-controlled Crohn's disease. His last issue was about 5 years ago. He did have a colonoscopy in June which she is tell me did show what sounds like a strictured area although he states the biopsies were negative. I do not have access to the biopsy report currently. Physical Exam Constitutional: WD/WN, vitals as above no acute distress and not ill appearing Eyes: PERRL, conjunctivae normal, anicteric sclerae EOM intact bilaterally ENMT: external ear and nose normal, oropharynx normal Ears: no hearing impairment Neck: trachea midline, no thyromegaly Respiratory: normal respiratory effort; no respiratory distress and does not use accessory muscles Cardiovascular: Rate/Rhythm: regular rate and regular rhythm Gastrointestinal (Abdomen): Soft. Mild suprapubic and left lower quadrant tenderness. No peritonitis Skin: no rashes, warm and dry Psychiatric: Orientation: alert, oriented x 3 and cooperative Results & Data Vital Signs (Past 12 Hours) Vital Signs Temp Pulse Pulse Pulse Resp BP BP 09/11/22 07:53 37 C 70 18 132/67 09/11/22 04:00 36.5 C 63 18 114/67 09/10/22 21:30 71 09/11/22 00:41 79 09/10/22 22:00 37.0 C 78 18 152/80 H 09/10/22 21:15 09/10/22 20:45 74 Pulse Ox O2 Del Method 09/11/22 07:53 97 Room Air 09/11/22 04:00 97 Room Air 09/10/22 21:30 09/11/22 00:41 09/10/22 22:00 99 Room Air 09/10/22 21:15 Room Air 09/10/22 20:45 PG Care Time/CCT Total # of Minutes Spent Total Time Spent with Patient: Total time spent is greater than 50% in coordination of care (as documented) at patient's floor/unit and/or counseling patient: Coding Level of Care Code 13922 SUB INP/OBS CARE 2MIN Diagnoses Crohns disease K50.90 Large bowel obstruction K56.609
--- NOTE | 2022-09-11 08:40 | Hospitalist Progress Note ---
Date of Service September 11, 2022 Assessment & Plan (1) Large bowel obstruction: Plan: Hx of Crohn's - has had this disease since age 17, underwent prior ileocecal resection (2014), had perianal dx w stetons, colon dilation also in 2014, currently maintained on Humira. He recently underwent colonoscopy w anal stricture and CT as outpt prior to his admission to the hospital w a suggestion of a 3cm mass in the rectosigmoid area w upstream intermittent/partial colon obstruction. OP CTAP w IV and oral contrast for constipation on 09/10/22: 1. The colon is diffusely distended with a large colonic stool burden, with change in caliber of the colon near the rectosigmoid junction at the site of an intraluminal rounded lamellated calcification at the rectosigmoid junction measuring approximately 2.9 x 2.6 cm. Question whether this calcification is causing a degree of intermittent or partial colonic obstruction. 2. Mild wall thickening involving the rectosigmoid colon, similar to the prior exam, likely sequela of chronic inflammation in the setting of known infl ammatory bowel disease. This appearance could potentially also represent a component of acute colitis. 3. Normal caliber small bowel. 4. Focus of linear soft tissue thickening extending posteriorly from the rectosigmoid colon to the presacral space, not significantly changed, likely chronic scarring/tethering. 5. A hypodense left hepatic lobe lesion measures approximately 2.5 cm, not significantly changed but indeterminate. Recommend MR abdomen with and without contrast for further evaluation. 6. Coronary artery calcifications. GI and surgery consulted - plan for colonoscopy tmrw, pt started on bowel prep (2) Crohns disease: Plan: On Humira - [facility], as above - consulted, appreciate their recs Plan Medication Reconciliation -Review and order home medications once list has been updated DVT ppx SCDs for now in event patient needs surgery Admission and Anticipated Discharge Date Admission Date: September 10, 2022 Subjective Pt seen in follow-up of colonic obstruction, history of Crohn's disease Currently patient is in no distress, reports passing gas Seen by surgery and GI, plan for colonoscopy tomorrow, patient started bowel prep No fevers chills chest pain shortness of breath + Abdominal distention Review of Systems Review of Systems: All systems reviewed & are unremarkable except as noted in Subjective Physical Exam Physical Exam: Physical Exam: Appears well, non toxic, no acute d istress ENMT: Head normocephali c, atraumatic, muc ous membrane moist Respiratory: Clear bilaterally , no wheezing/rhon chi/rales Cardiovascular:I Regular rate and rhythm, no murmurs /rubs/gallops Gastrointestinal ( Abdomen): + bowel sounds, + distended, mild te nderness in lower quadrants Musculoskeletal: Moves extremities Skin: No rash, warm, dr y Neurologic: Awake, alert, spo ntaneously moving extremities Psychiatric: Normal affect, sp eech linear, non p ressured Results & Data Results & Data Vital Signs (Past 12 Hours) Vital Signs Temp Pulse Pulse Pulse Resp BP BP 09/11/22 07:53 37 C 70 18 132/67 09/11/22 04:00 36.5 C 63 18 114/67 09/10/22 21:30 71 09/11/22 00:41 79 09/10/22 22:00 37.0 C 78 18 152/80 H 09/10/22 21:15 09/10/22 20:45 74 Pulse Ox O2 Del Method 09/11/22 07:53 97 Room Air 09/11/22 04:00 97 Room Air 09/10/22 21:30 09/11/22 00:41 09/10/22 22:00 99 Room Air 09/10/22 21:15 Room Air 09/10/22 20:45 Laboratory Results 09/11/22 09/11/22 09/11/22 Range/Units 06:50 06:50 06:50 WBC 7.62 (4.8-10.8) K/ul RBC 4.24 L (4.70-6.10) M/uL Hgb 11.5 L (14.0-18.0) g/dl Hct 37.0 L (42.0-52.0) % MCV 87.3 (80.0-100.0) fL MCH 27.1 (25.0-34.0) pg MCHC 31.1 L (32.0-36.0) g/dL RDW Std Deviation 41.4 (36.4-46.3) fL RDW Coeff of Rajiv 13.3 (11.5-14.5) % Plt Count 321 (130-400) K/uL MPV 10.4 (9.4-12.4) fL Immature Gran % (Auto) % Neut % (Auto) % Lymph % (Auto) % Petroleum % (Auto) % Eos % (Auto) % Baso % (Auto) % Neut # (Auto) (1.40-6.50) K/uL Lymph # (Auto) (1.2-3.4) K/uL Petroleum # (Auto) (0.11-0.59) K/uL Eos # (Auto) (0-0.50) K/uL Baso # (Auto) (0-0.2) K/uL Immature Gran # (Auto) (0.01-0.20) K/uL ESR (0-20) mm/hr PT 10.9 (9.0-12.0) Seconds INR 1.0 (0.9-1.1) Sodium 137 (136-145) mmol/L Potassium 4.3 (3.5-5.1) mmol/L Chloride 104 (98-107) mmol/L Carbon Dioxide 28 (21-32) mmol/L Anion Gap 5 (3-11) BUN 14 (6-23) mg/dl Creatinine 0.83 (0.6-1.4) mg/dl Est Cr Clr Drug Dosing 96.5 ml/min Est GFR ( Amer) 110.1 ml/min Est GFR (Non-Af Amer) 95.0 ml/min BUN/Creatinine Ratio 16.9 (10-20) Glucose 85 (70-99(Fasting)) mg/dl Calcium 9.1 (8.6-10.3) mg/dl Total Bilirubin 0.8 (0.2-1.0) mg/dl AST 17 (13-39) U/L ALT 14 (7-52) U/L Alkaline Phosphatase 78 (34-104) U/L C-Reactive Protein (0-0.5) mg/dl Total Protein 7.2 (6.0-8.3) gm/dl Albumin 3.8 (3.4-5.0) gm/dl Globulin 3.4 (2.5-4.0) gm/dl Albumin/Globulin Ratio 1.1 (0.9-2) Lipase (11-82) U/L SARS-CoV-2, RNA, NAAT (NEGATIVE) 09/10/22 09/10/22 09/10/22 Range/Units 18:10 17:15 17:15 WBC (4.8-10.8) K/ul RBC (4.70-6.10) M/uL Hgb (14.0-18.0) g/dl Hct (42.0-52.0) % MCV (80.0-100.0) fL MCH (25.0-34.0) pg MCHC (32.0-36.0) g/dL RDW Std Deviation (36.4-46.3) fL RDW Coeff of Rajiv (11.5-14.5) % Plt Count (130-400) K/uL MPV (9.4-12.4) fL Immature Gran % (Auto) % Neut % (Auto) % Lymph % (Auto) % Petroleum % (Auto) % Eos % (Auto) % Baso % (Auto) % Neut # (Auto) (1.40-6.50) K/uL Lymph # (Auto) (1.2-3.4) K/uL Petroleum # (Auto) (0.11-0.59) K/uL Eos # (Auto) (0-0.50) K/uL Baso # (Auto) (0-0.2) K/uL Immature Gran # (Auto) (0.01-0.20) K/uL ESR 28 H (0-20) mm/hr PT (9.0-12.0) Seconds INR (0.9-1.1) Sodium (136-145) mmol/L Potassium (3.5-5.1) mmol/L Chloride (98-107) mmol/L Carbon Dioxide (21-32) mmol/L Anion Gap (3-11) BUN (6-23) mg/dl Creatinine (0.6-1.4) mg/dl Est Cr Clr Drug Dosing ml/min Est GFR ( Amer) ml/min Est GFR (Non-Af Amer) ml/min BUN/Creatinine Ratio (10-20) Glucose (70-99(Fasting)) mg/dl Calcium (8.6-10.3) mg/dl Total Bilirubin (0.2-1.0) mg/dl AST (13-39) U/L ALT (7-52) U/L Alkaline Phosphatase (34-104) U/L C-Reactive Protein < 0.50 (0-0.5) mg/dl Total Protein (6.0-8.3) gm/dl Albumin (3.4-5.0) gm/dl Globulin (2.5-4.0) gm/dl Albumin/Globulin Ratio (0.9-2) Lipase (11-82) U/L SARS-CoV-2, RNA, NAAT NEGATIVE (NEGATIVE) 09/10/22 09/10/22 Range/Units 17:15 17:15 WBC 8.79 (4.8-10.8) K/ul RBC 4.16 L (4.70-6.10) M/uL Hgb 11.6 L (14.0-18.0) g/dl Hct 35.5 L (42.0-52.0) % MCV 85.3 (80.0-100.0) fL MCH 27.9 (25.0-34.0) pg MCHC 32.7 (32.0-36.0) g/dL RDW Std Deviation 41.0 (36.4-46.3) fL RDW Coeff of Rajiv 13.3 (11.5-14.5) % Plt Count 315 (130-400) K/uL MPV 10.1 (9.4-12.4) fL Immature Gran % (Auto) 0.2 % Neut % (Auto) 57.9 % Lymph % (Auto) 28.8 % Petroleum % (Auto) 11.6 % Eos % (Auto) 1.0 % Baso % (Auto) 0.5 % Neut # (Auto) 5.09 (1.40-6.50) K/uL Lymph # (Auto) 2.53 (1.2-3.4) K/uL Petroleum # (Auto) 1.02 H (0.11-0.59) K/uL Eos # (Auto) 0.09 (0-0.50) K/uL Baso # (Auto) 0.04 (0-0.2) K/uL Immature Gran # (Auto) 0.02 (0.01-0.20) K/uL ESR (0-20) mm/hr PT (9.0-12.0) Seconds INR (0.9-1.1) Sodium 135 L (136-145) mmol/L Potassium 4.1 (3.5-5.1) mmol/L Chloride 101 (98-107) mmol/L Carbon Dioxide 27 (21-32) mmol/L Anion Gap 7 (3-11) BUN 15 (6-23) mg/dl Creatinine 0.79 (0.6-1.4) mg/dl Est Cr Clr Drug Dosing 101.4 ml/min Est GFR ( Amer) 112.3 ml/min Est GFR (Non-Af Amer) 96.9 ml/min BUN/Creatinine Ratio 19.0 (10-20) Glucose 84 (70-99(Fasting)) mg/dl Calcium 8.9 (8.6-10.3) mg/dl Total Bilirubin 0.7 (0.2-1.0) mg/dl AST 19 (13-39) U/L ALT 15 (7-52) U/L Alkaline Phosphatase 78 (34-104) U/L C-Reactive Protein (0-0.5) mg/dl Total Protein 7.2 (6.0-8.3) gm/dl Albumin 3.8 (3.4-5.0) gm/dl Globulin 3.4 (2.5-4.0) gm/dl Albumin/Globulin Ratio 1.1 (0.9-2) Lipase 18 (11-82) U/L SARS-CoV-2, RNA, NAAT (NEGATIVE) Medications Administered Current Inpatient Medications Acetaminophen (Acetaminophen 325 Mg Tab) 650 mg PO Q4H PRN PRN Reason: Pain or Fever Stop: 10/10/22 21:29 Sodium Chloride (Nss 1000ml) 1,000 mls @ 100 mls/hr IV .Q10H GRETCHEN Stop: 10/10/22 21:29 Last Admin: 09/11/22 06:23 Dose: 100 mls/hr Morphine Sulfate (Morphine Sulfate 2 Mg/Ml Carp) 2 mg IV Q4 PRN PRN Reason: Pain Stop: 09/24/22 21:29 Last Admin: 09/11/22 00:08 Dose: 2 mg Ondansetron HCl (Ondansetron Inj 2 Mg/Ml 2 Ml Vial) 4 mg IV Q6H PRN PRN Reason: Nausea Stop: 10/10/22 21:29
[2022-09-11 09:38] LABS: Appearance Urine Cloudy (Clear); Bacteria Urine Automated 4+ (Negative); Bilirubin Urine Negative (Negative); Blood Urine Negative (Negative); Cast Urine Automated 0 /lpf (0-5); Color Urine Yellow; Epithelial Cell Urine Auto 0-5 /lpf (0-5); Glucose Urine UA Negative (Negative); Ketones Urine 1+ (Negative); Leukocyte Esterase Urine 3+ (Negative); Nitrite Urine Positive (Negative); Protein Urine Negative (Negative); RBC Urine Automated 0-4 /hpf (0-4); Specific Gravity Urine 1.021 (1.000-1.030); Urobilinogen Urine Negative (Negative); WBC Urine Automated >30 /hpf (0-5)
[2022-09-11] MEDS ORDERED: cefTRIAXone SODIUM 1,000 MG in DEXTROSE 5% AD-VAN 50 ML IV SCH (11:00)
[2022-09-11] MEDS: cefTRIAXone SODIUM 2,000 MG in DEXTROSE 5% 50 ML IV SCH (12:14)
[2022-09-11] MEDS ORDERED: LAVAGE SOLUTION 4000ML PO SCH ×2 (13:00)
[2022-09-12] MEDS: SODIUM CHLORIDE 0.9% 1000ML 1,000 ML IV SCH ×2 (02:50→13:16)
[2022-09-12 07:35] LABS: Hematocrit (blood only) 32.1 % (42.0-52.0); Hemoglobin 10.3 g/dl (14.0-18.0); Mean Corpuscular Hemoglobin 27.8 pg (25.0-34.0); Mean Corpuscular Hgb Conc 32.1 g/dL (32.0-36.0); Mean Corpuscular Volume 86.8 fL (80.0-100.0); Mean Platelet Volume 10.9 fL (9.4-12.4); Platelet Count 280 K/uL (130-400); RDW Coefficient of Variation 13.2 % (11.5-14.5); RDW Standard Deviation 41.6 fL (36.4-46.3)
[2022-09-12 07:56] LABS: BUN Creatinine Ratio 16.7 (10-20); Calcium 8.5 mg/dl (8.6-10.3); Creatinine Clr Calc Pharmacy 102.7 ml/min; Est GFR (African American) 112.9 ml/min; Est GFR (Non-African American) 97.4 ml/min; Magnesium 1.7 mg/dl (1.7-2.4); Phosphorus 2.5 mg/dl (2.5-4.9); Potassium 3.9 mmol/L (3.5-5.1)
[2022-09-12] MEDS ORDERED: MAGNESIUM SULFATE / D5W 1 GM/100 ML BAG IV ONE (09:45)
--- NOTE | 2022-09-12 09:58 | Hospitalist Progress Note ---
Date of Service September 12, 2022 Assessment & Plan (1) Large bowel obstruction: Plan: Hx of Crohn's - has had this disease since age 17, underwent prior ileocecal resection (2014), had perianal dx w stetons, colon dilation also in 2014, currently maintained on Humira. He recently underwent colonoscopy w anal stricture and CT as outpt prior to his admission to the hospital w a suggestion of a 3cm mass in the rectosigmoid area w upstream intermittent/partial colon obstruction. OP CTAP w IV and oral contrast for constipation on 09/10/22: 1. The colon is diffusely distended with a large colonic stool burden, with change in caliber of the colon near the rectosigmoid junction at the site of an intraluminal rounded lamellated calcification at the rectosigmoid junction measuring approximately 2.9 x 2.6 cm. Question whether this calcification is causing a degree of intermittent or partial colonic obstruction. 2. Mild wall thickening involving the rectosigmoid colon, similar to the prior exam, likely sequela of chronic inflammation in the setting of known infl ammatory bowel disease. This appearance could potentially also represent a component of acute colitis. 3. Normal caliber small bowel. 4. Focus of linear soft tissue thickening extending posteriorly from the rectosigmoid colon to the presacral space, not significantly changed, likely chronic scarring/tethering. 5. A hypodense left hepatic lobe lesion measures approximately 2.5 cm, not significantly changed but indeterminate. Recommend MR abdomen with and without contrast for further evaluation. 6. Coronary artery calcifications. GI and surgery consulted - plan for colonoscopy today (09/12/2022) (2) Crohns disease: Plan: On Humira - follows [facility], as above - consulted, appreciate their recs UTI UA c/w UTI, ceftriaxone started urine cultx - positive for GNB - follow final cultx results Plan - cont. home medications DVT ppx SCDs for now in event patient needs surgery Admission and Anticipated Discharge Date Admission Date: September 10, 2022 Subjective Pt seen in follow-up of colonic obstruction, history of Crohn's disease Currently patient is in no distress, having BMs w/ bowel prep Seen by surgery and GI, plan for colonoscopy today No fevers chills chest pain shortness of breath Abdominal distention now resolved Review of Systems Review of Systems: All systems reviewed & are unremarkable except as noted in Subjective Physical Exam Physical Exam: Physical Exam: Appears well, non toxic, no acute d istress ENMT: Head normocephali c, atraumatic, muc ous membrane moist Respiratory: Clear bilaterally , no wheezing/rhon chi/rales Cardiovascular:I Regular rate and rhythm, no murmurs /rubs/gallops Gastrointestinal ( Abdomen): + bowel sounds, n on-distended 9much improved), mild t enderness in lower quadrants Musculoskeletal: Moves extremities Skin: No rash, warm, dr y Neurologic: Awake, alert, spo ntaneously moving extremities Psychiatric: Normal affect, sp eech linear, non p ressured Results & Data Results & Data Vital Signs (Past 12 Hours) Vital Signs Temp Pulse Pulse Resp BP Pulse Ox O2 Del Method 09/12/22 07:53 36.9 C 76 16 150/74 H 99 Room Air 09/12/22 07:45 75 09/12/22 04:00 36.6 C 82 18 146/76 H 95 Room Air 09/12/22 00:00 78 09/11/22 23:48 37.0 C 84 18 120/68 97 Room Air Laboratory Results 09/12/22 09/12/22 Range/Units 06:45 06:45 WBC 9.20 (4.8-10.8) K/ul RBC 3.70 L (4.70-6.10) M/uL Hgb 10.3 L (14.0-18.0) g/dl Hct 32.1 L (42.0-52.0) % MCV 86.8 (80.0-100.0) fL MCH 27.8 (25.0-34.0) pg MCHC 32.1 (32.0-36.0) g/dL RDW Std Deviation 41.6 (36.4-46.3) fL RDW Coeff of Rajiv 13.2 (11.5-14.5) % Plt Count 280 (130-400) K/uL MPV 10.9 (9.4-12.4) fL Sodium 138 (136-145) mmol/L Potassium 3.9 (3.5-5.1) mmol/L Chloride 105 (98-107) mmol/L Carbon Dioxide 24 (21-32) mmol/L Anion Gap 9 (3-11) BUN 13 (6-23) mg/dl Creatinine 0.78 (0.6-1.4) mg/dl Est Cr Clr Drug Dosing 102.7 ml/min Est GFR ( Amer) 112.9 ml/min Est GFR (Non-Af Amer) 97.4 ml/min BUN/Creatinine Ratio 16.7 (10-20) Glucose 69 L (70-99(Fasting)) mg/dl Calcium 8.5 L (8.6-10.3) mg/dl Phosphorus 2.5 (2.5-4.9) mg/dl Magnesium 1.7 (1.7-2.4) mg/dl Medications Administered Current Inpatient Medications Acetaminophen (Acetaminophen 325 Mg Tab) 650 mg PO Q4H PRN PRN Reason: Pain or Fever Stop: 10/10/22 21:29 Sodium Chloride (Nss 1000ml) 1,000 mls @ 100 mls/hr IV .Q10H GRETCHEN Stop: 10/10/22 21:29 Last Admin: 09/12/22 02:50 Dose: 100 mls/hr Ceftriaxone Sodium 2,000 mg/ (Dextrose) 70 mls @ 140 mls/hr IV Q24H GRETCHEN Stop: 09/21/22 10:59 Last Infusion: 09/11/22 13:27 Dose: Infused Magnesium Sulfate/Dextrose (Magnesium Sulfate / D5w) 1 gm in 100 mls @ 50 mls/ hr IV ONE ONE Stop: 09/12/22 11:44 Morphine Sulfate (Morphine Sulfate 2 Mg/Ml Carp) 2 mg IV Q4 PRN PRN Reason: Pain Stop: 09/24/22 21:29 Last Admin: 09/11/22 20:57 Dose: 2 mg Ondansetron HCl (Ondansetron Inj 2 Mg/Ml 2 Ml Vial) 4 mg IV Q6H PRN PRN Reason: Nausea Stop: 10/10/22 21:29
--- NOTE | 2022-09-12 10:27 | Anesthesiology Consultation ---
Date of Service September 12, 2022 Assessment & Plan Chart Review Chart Review: Acceptable Risk for Surgery Consults Requested none History Surgery Operation Date: 09/12/22 16:45 Proposed Procedures p Colonoscopy Dr Pichardo - Haydee Pichardo MD Height/Weight Height: 5 ft 10 in Weight: 78.6 kg Allergies Allergy/AdvReac Type Severity Reaction Status Date / Time aspirin Allergy Severe HIVES Verified 09/12/22 10:21 Sulfa (Sulfonamide Allergy Severe HIVES Verified 09/12/22 10:21 Antibiotics) Medications Home Medications Medication Instructions Recorded Confirmed Last Taken adalimumab 40 mg/0.8 mL 40 mg subcut DIRECTED 04/11/18 04/11/18 03/29/18 subcutaneous syringe kit (Humira) cholecalciferol (vitamin D3) 25 1,000 unit PO DAILY 04/11/18 04/11/18 04/11/18 mcg (1,000 unit) capsule (Vitamin D3) hydrocodone 10 mg-acetaminophen 1 tab PO DIRECTED PRN Pain 04/11/18 04/11/18 04/11/18 10:00 325 mg tablet ([place]) 1 TAB ondansetron 4 mg disintegrating 4 mg PO Q6H PRN nausea and 04/11/18 Unknown tablet vomiting #20 tabs Active Medications Generic Name Dose Route Start Last Admin Trade Name Freq PRN Reason Stop Dose Admin Sodium Chloride 1,000 mls @ 100 mls/hr 09/10/22 21:30 09/12/22 02:50 Nss 1000ml IV 10/10/22 21:29 100 mls/hr .Q10H GRETCHEN Administration Ceftriaxone Sodium 2,000 mg/ 70 mls @ 140 mls/hr 09/11/22 11:00 09/11/22 13:27 Dextrose IV 09/21/22 10:59 Infused Q24H GRETCHEN Infusion Morphine Sulfate 2 mg 09/10/22 21:30 09/11/22 20:57 Morphine Sulfate 2 Mg/Ml Carp IV 09/24/22 21:29 2 mg Q4 PRN Administration Pain NPO Date Last Intake of Fluids: 09/11/22 Time Last Intake of Fluids: 15:30 Date Last Intake of Solids: 09/10/22 Time Last Intake of Solids: 05:30 Past Medical History Medical History Abdominal fistula Bronchitis Crohns disease Past Family History Family History Other Family history non-contributory Social History Smoking Status: Never smoker Hx Alcohol Use: Yes Alcohol type: beer alcohol intake frequency: a few times a week Hx Substance Use: No substance use type: does not use Physical Exam Vital Signs Last Vital Signs Temp 36.4 C L 09/12/22 10:22 Pulse 81 09/12/22 10:22 Resp 16 09/12/22 10:22 BP 151/76 H 09/12/22 10:22 Pulse Ox 99 09/12/22 10:22 O2 Del Method Room Air 09/12/22 10:22 Testing Laboratory Results 09/12/22 06:45 09/12/22 06:45 PT 10.9 Seconds (9.0-12.0) 09/11/22 06:50 INR 1.0 (0.9-1.1) 09/11/22 06:50 Urine Color Yellow 09/11/22 Unknown Urine Appearance Cloudy (Clear) A 09/11/22 Unknown Urine pH 6.0 (4.5-7.5) 09/11/22 Unknown Ur Specific [place] 1.021 (1.000-1.030) 09/11/22 Unknown Urine Protein Negative (Negative) 09/11/22 Unknown Urine Glucose (UA) Negative (Negative) 09/11/22 Unknown Urine Ketones 1+ (Negative) H 09/11/22 Unknown Urine Nitrite Positive (Negative) A 09/11/22 Unknown Ur Leukocyte Esterase 3+ (Negative) H 09/11/22 Unknown Urine WBC (Auto) >30 /hpf (0-5) H 09/11/22 Unknown Urine RBC (Auto) 0-4 /hpf (0-4) 09/11/22 Unknown U Hyaline Cast (Auto) 0 /lpf (0-5) 09/11/22 Unknown U Epithel Cells (Auto) 0-5 /lpf (0-5) 09/11/22 Unknown Urine Bacteria (Auto) 4+ (Negative) H 09/11/22 Unknown 09/11/22 Unknown Urine Culture - Preliminary Urine,Clean Catch Gram negative bacilli
[2022-09-12] MEDS ORDERED: PROPOFOL IV EMULSION 10 MG/ML 20 ML VIAL IV ONE ×3 (10:43→11:19)
[2022-09-12] MEDS ORDERED: MIDAZOLAM HCL 1 MG/ML 2ML VIAL ONE (10:43)
[2022-09-12] MEDS ORDERED: fentaNYL citrate PF 100 MCG/2 ML VIAL ONE (10:43)
--- NOTE | 2022-09-12 10:49 | History & Physical Bridge Note ---
Date of Service September 12, 2022 History & Physical Bridge Note I have examined the patient, reviewed the History & Physical and in the interval since the performance of the History & Physical I have noted the following changes of clinical significance: no changes noted Colonoscopy Patient was explained in detail regarding risks, benefits, limitations and alternatives of the above endoscopic procedure. Risks of intravenous sedation used for procedure were also explained. Risks include, but not limited to perfor ation, bleeding, infection, respiratory distress, cardiac arrest and . Patient is also aware about the possibility of missed lesion. Patient's questions were answered. The patient verbalized understanding the information and agreed to undergo the procedure.
--- NOTE | 2022-09-12 11:45 | GI REPORT ---
Patient Name: Catarino Wheeler Procedure Date: 09/12/2022 10:49 AM Date of : 1960 Admit Type: Inpatient Age: 62 Gender: Male Attending MD: Haydee Pichardo MD, Procedure: Colonoscopy Providers: Haydee Pichardo MD Referring MD: Cherri Fairchild NP, Walter Jeter Md Indications: Abnormal CT of the GI tract Medicines: Propofol per Anesthesia Complications: No immediate complications. Estimated Blood Loss: Estimated blood loss: none. Procedure: Pre-Anesthesia Assessment: - Prior to the procedure, a History and Physical was performed, and patient medications, allergies and sensitivities were reviewed. The patient's tolerance of previous anesthesia was reviewed. - The risks and benefits of the procedure and the sedation options and risks were discussed with the patient. All questions were answered and informed consent was obtained. - Patient identification and proposed procedure were verified prior to the procedure by the physician and the nurse. The procedure was verified in the procedure room. - Pre-procedure physical examination revealed no contraindications to sedation. After I obtained informed consent, the scope was passed under direct vision. Throughout the procedure, the patient's blood pressure, pulse, and oxygen saturations were monitored continuously. The Colonoscope was introduced through the anus with the intention of advancing to the cecum. The scope was advanced to the sigmoid colon before the procedure was aborted. Medications were given. The colonoscopy was performed without difficulty. The patient tolerated the procedure well. The quality of the bowel preparation was poor. Findings: The digital rectal exam findings include anal stricture. An 8 mm polyp was found in the rectum. The polyp was sessile. The polyp was removed with a saline injection-lift technique using a hot snare. Resection and retrieval were complete. Verification of patient identification for the specimen was done by the physician and nurse using the patient's name and date. Impression: - Preparation of the colon was poor hence procedure was aborted. - One 8 mm polyp in the rectum, removed using injection-lift and a hot snare. Resected and retrieved. Recommendation: - [facility]. - Await pathology results. - Repeat colonoscopy within 3 months as OP because the bowel preparation was poor. Currently there is no evidence of colonic obstruction given copious amount of stool in the rectum. Haydee Pichardo MD 09/12/2022 11:44:45 AM This report has been signed electronically. Note Initiated On: 09/12/2022 10:49 AM Number of Addenda: 0 I attest to the content of the Intraoperative Record and orders documented therein, exceptions below {[id number]}
--- NOTE | 2022-09-12 12:52 | Anesthesiology Progress Note ---
Date of Service September 12, 2022 Anesthesia Post Procedure Vital Signs Vital Signs: Temp Pulse Pulse Resp BP BP Pulse Ox 09/12/22 12:09 63 16 120/62 99 09/12/22 11:54 64 16 108/59 L 99 09/12/22 11:39 71 16 112/59 L 100 09/12/22 10:22 36.4 C L 81 16 151/76 H 99 09/12/22 07:53 36.9 C 76 16 150/74 H 99 09/12/22 07:45 75 09/12/22 04:00 36.6 C 82 18 146/76 H 95 09/12/22 00:00 78 09/11/22 23:48 37.0 C 84 18 120/68 97 09/11/22 19:00 37.1 C 79 18 151/79 H 96 09/11/22 15:00 81 09/11/22 15:46 37 C 76 18 132/79 98 O2 Del Method 09/12/22 12:09 Room Air 09/12/22 11:54 Room Air 09/12/22 11:39 Room Air 09/12/22 10:22 Room Air 09/12/22 07:53 Room Air 09/12/22 07:45 09/12/22 04:00 Room Air 09/12/22 00:00 09/11/22 23:48 Room Air 09/11/22 19:00 Room Air 09/11/22 15:00 09/11/22 15:46 Room Air Pain Intensity Abdomen: Pain Intensity: 7 Transfer of Care Handoff Completed per policy Notes Mental Status: alert / awake / arousable and participated in evaluation Patient Amnestic to Procedure: Yes Nausea / Vomiting: adequately controlled Pain: adequately controlled Airway Patency, RR, SpO2: stable & adequate BP & HR: stable & adequate Hydration State: stable & adequate Anesthetic Complications: no major complications apparent
[2022-09-12] MEDS: cefTRIAXone SODIUM 2,000 MG in DEXTROSE 5% 50 ML IV SCH (12:54)
--- NOTE | 2022-09-12 13:23 | Communication Note ---
Date of Service: September 12, 2022 Colonoscopy was poor prep however there was copious amount flowing into the rectum confirming no colonic obstruction. Plan for repeat colonoscopy as OP in few months to evaluate and treat any colonic strictures. Linzess as OP. Diet as tolerated. Recall GI if needed.
--- NOTE | 2022-09-12 15:10 | Discharge Summary ---
Date of Service September 12, 2022 Admission HPI Per Admitting Provider Mr Catarino Wheeler is a 62 year old man with history of Crohn's disease currently on Humira was sent in for outpatient imaging today which showed colonic obstruction. Patient reports his Crohn's has been well managed on Humira. He reports having a history of intermittent constipation since May. For the past 3 weeks his constipation has worsened and he has not had a significant bowel movement. He was sent to have a CT A/P with IV and oral contrast today which revealed "the colon is diffusely distended with a large colonic stool burden with change in caliber of the colon near the rectosigmoid junction at the site of a intraluminal rounded lamellated calcification at rectosigmoid junction measuring 2.9 x 2.6cm...." He was sent to the ER by GI. He has otherwise been in his usual state of health. ER course- No medications given Admission Exam Per Admitting Provider Physical Exam: Appears well, non toxic, no acute distress ENMT: Head normocephalic, atraumatic, mucous membrane moist Respiratory: Clear bilaterally, no wheezing/rhonchi/rales Cardiovascular: Regular rate and rhythm, no murmurs/rubs/gallops Gastrointestinal (Abdomen): Hyperactive bowel sounds, soft, non distended Musculoskeletal: No cyanosis no edema no clubbing Skin: No rash, no redness, no ulcer noted on exposed skin Neurologic: Awake, alert, spontaneously moving extremities Psychiatric: Normal affect, speech linear, non pressured Principal Diagnosis Colonic obstruction, constipation, hx of Crohn's Discharge Exam Physical Exam: Appears well, non toxic, no acute distress ENMT: Head normocephalic, atraumatic, mucous membrane moist Respiratory: Clear bilaterally, no wheezing/rhonchi/rales Cardiovascular: Regular rate and rhythm, no murmurs/rubs/gallops Gastrointestinal (Abdomen): + bowel sounds, non-distended 9much improved), mild tenderness in lower quadrants Musculoskeletal: Moves extremities Skin: No rash, warm, dry Neurologic: Awake, alert, spontaneously moving extremities Psychiatric: Normal affect, speech linear, non pressured Discharge Data Allergies Allergy/AdvReac Type Severity Reaction Status Date / Time aspirin Allergy Severe HIVES Verified 09/12/22 10:21 Sulfa (Sulfonamide Allergy Severe HIVES Verified 09/12/22 10:21 Antibiotics) Consultations 09/10/22 19:53 Consult Gastroenterology Routine Consult General Surgery Stat Procedures Performed Operation Date: 09/12/22 16:45 Actual Procedures p Colonoscopy Polypectomy - Haydee Pichardo MD Hospital Course (1) Large bowel obstruction: Hx of Crohn's - has had this disease since age 17, underwent prior ileocecal resection (2014), had perianal dx w stetons, colon dilation also in 2014, currently maintained on Humira. He recently underwent colonoscopy w anal stricture and CT as outpt prior to his admission to the hospital w a suggestion of a 3cm mass in the rectosigmoid area w upstream intermittent/partial colon obstruction. OP CTAP w IV and oral contrast for constipation on 09/10/22: 1. The colon is diffusely distended with a large colonic stool burden, with change in caliber of the colon near the rectosigmoid junction at the site of an intraluminal rounded lamellated calcification at the rectosigmoid junction measuring approximately 2.9 x 2.6 cm. Question whether this calcification is causing a degree of intermittent or partial colonic obstruction. 2. Mild wall thickening involving the rectosigmoid colon, similar to the prior exam, likely sequela of chronic inflammation in the setting of known inflammatory bowel disease. This appearance could potentially also represent a component of acute colitis. 3. Normal caliber small bowel. 4. Focus of linear soft tissue thickening extending posteriorly from the rectosigmoid colon to the presacral space, not significantly changed, likely chronic scarring/tethering. 5. A hypodense left hepatic lobe lesion measures approximately 2.5 cm, not significantly changed but indeterminate. Recommend MR abdomen with and without contrast for further evaluation. 6. Coronary artery calcifications. GI and surgery consulted Pt underwent colonoscopy today (09/12/2022) Findings: The digital rectal exam findings include anal stricture. An 8 mm polyp was found in the rectum. The polyp was sessile. The polyp was removed with a saline injection-lift technique using a hot snare. Resection and retrieval were complete. Verification of patient identification for the specimen was done by the physician and nurse using the patient's name and date. Impression: - Preparation of the colon was poor hence procedure was aborted. - One 8 mm polyp in the rectum, removed using injection-lift and a hot snare. Resected and retrieved. Recommendation: - Return patient to [facility] for [facility] care. - Await pathology results. - Repeat colonoscopy within 3 months as OP because the bowel preparation was poor. Currently there is no evidence of colonic obstruction given copious amount of stool in the rectum. Discussed with gastroenterology, starting patient on Trulance. This will need prior authorization. In the meantime patient to continue MiraLAX twice daily. (2) Crohns disease: On Humira - follows [facility], as above - consulted, appreciate their recs UTI UA c/w UTI, ceftriaxone started urine cultx - positive for GNB - follow final cultx results, will DC on cefuroxime PCP follow up arranged Plan - cont. home medications Total Time Total Time Spent Total Time Spent (In Minutes): 40 Discharge Plan Discharge Items Patient Disposition: Home - Self-Care Reason For Visit: LARGE BOWEL OBSTRUCTION Discharge Diagnosis: Colonic obstruction, constipation, hx of Crohn's Activity: Per Instructions section Non-emergency contact: Primary Care Provider and Material Damage Adjuster Call non-emergency contact if: you have any medication questions and your symptoms worsen Follow-up/Referrals: Denzel Pabon MD [Primary Care Provider] - (Date & Time 09/18/2022 10:20 AM Provider Denzel Pabon MD Department [facility] ) Haydee Pichardo MD [Physician] - (The GI office will call you with an appointment.) Diet: Low Fiber Addtl Attending Provider Instructions: Follow-up with primary care physician, and benzene operator. The appointment with primary care physician was scheduled for you for September 18. At that time final results of urine culture will be available, discuss this with your primary care physician. In the meantime continue antibiotic treatment wit h cefuroxime, as prescribed. You will be contacted about your appointment with gastroenterology. You will need to have colonoscopy repeated within 3 months. Polyp was removed during this colonoscopy, and pathology results are pending. Your benzene operator is starting you on medication called Trulance. In the meantime continue using MiraLAX twice daily. Pending Studies at Discharge: Yes Studies:: pathology from colonoscopy/ polyp removal Final urine cultx results Stand-Alone Forms: My [facility] MaPS, Smoking Cessation Medications and DC Order Prescriptions: New cefuroxime axetil 250 mg tablet 250 mg PO BID 4 Days Qty: 8 0RF Continued adalimumab [Humira] 40 mg/0.8 mL Syringe Kit 40 mg SUBCUT DIRECTED Rx Instructions: EVERY 2 WEEKS ON SUNDAYS. hydrocodone-acetaminophen [[place]] 10-325 mg Tablet 1 tab PO DIRECTED PRN (Reason: Pain) cholecalciferol (vitamin D3) [Vitamin D3] 1,000 unit Capsule 1,000 unit PO DAILY ondansetron 4 mg tablet,disintegrating 4 mg PO Q6H PRN (Reason: nausea and vomiting) Qty: 20 0RF Discharge Orders: Discharge Order (Routine); Ordered 09/12/22 Ordered By: Walter Jeter Admission Data Admit Date/Time: 09/10/22 19:53 Attending Provider: Walter Jeter Admit Provider: Sean Kaplan Primary Care Provider: Denzel Pabon Other Providers: Joel Dyer ; Aguilar Downing ; Sean Kaplan Other Interventions: Discharge Summary Assessment (RN) Last Done: 09/12/22 12:21
== END 2022-09-12 17:08 | disposition home or self-care (01) | DRG 386 ==
LOC: ED 16:33 → 2W 19:53 → SUATTDRO 19:53 → 2W 21:15

== ENCOUNTER 2022-11-17 06:43 | Inpatient (IN) ==
[2022-11-17] MEDS ORDERED: SODIUM CHLORIDE 0.9% 1000ML 1,000 ML IV STA (06:55)
[2022-11-17] MEDS ORDERED: HYDROmorphone INJ 0.5 MG/0.5 ML SYR IV STA ×2 (07:07→22:12)
--- NOTE | 2022-11-17 07:26 | Emergency Department Note ---
Impression & Plan Abdominal pain, Constipation, Crohns disease, Fever, Colitis ED Provider Note Provider: Car Grover MD DATE OF SERVICE: 11/17/2022 CHIEF COMPLAINT: Abdominal pain HISTORY OF PRESENT ILLNESS: Patient is a 62-year-old gentleman past medical history significant for Crohn's disease on and prior ileocecal resection in 2014 with colonic dilation as well as a history several months ago of large bowel obstruction presenting here today with a complaint of abdominal pain. Patient evidently had rectal dilation on Friday. Reporting that he has not had a bowel movement since October 15 of this month and had a fever at home. States fevers are 101 Fahrenheit. Procedure on Friday and [place] with rectal dilation by colorectal from [facility]. That evening had a blackout episode several hours after oxycodone and began to have fevers. Denies significant vomiting states has been eating but significantly distended. Worsened abdominal pain. Using some hydrocodone which has helped some of the pain. Some chills and sweats reported. No pain medication this morning. States he had a small amount of trace stool since his last real bowel movement in September but nothing significant. No blood reported. Denies any URI symptoms. Denies significant chest discomfort. Distant history of perforation in 1989 requiring brief ileostomy but anastomosis several months later with successful for continuity. No issues with constipation issues until just this year starting in April. No urinary issues. While not taking this morning did use some Motrin the last day or so for fever at home with transient improvement. PAST MEDICAL HISTORY: As noted above MEDICATIONS: Reviewed home medications SOCIAL HISTORY: PHYSICAL EXAM: GENERAL: alert and oriented in no acute distress on stretcher Head: normocephalic and atraumatic EYES: No injection, discharge or icterus. NECK: Trachea midline. ENT: Mucous membranes pink and moist. LUNGS: Airway patent. No retractions or tachypnea HEART: Regular tachycardic rate and rhythm. ABDOMEN: Moderately distended with left greater than right lower abdominal tenderness. SKIN: Acyanotic, warm, dry, without rashes EXTREMITIES: Without swelling, tenderness or deformity NEUROLOGICAL: No focal deficits. No aphasia. No facial droop or slurred speech. Ambulatory. EK bpm sinus tachycardia. No PVC. No acute ST segment elevation with a QTc of 420. CONTINUOUS CARDIAC MONITORING: was ordered and showed a heart rate of 80s-110s bpm in sinus tachycardia normal sinus PDMP was checked consistent with his reported recent prescription for pain medication postsurgery. Patient's laboratory studies and imaging reviewed. Differential includes infections, diverticulitis, UTI, obstruction, mesenteric ischemia, aortic pathology, inflammatory bowel disease, renal colic, PUD, pancreatitis, biliary pathology, hernia, volvulus, constipation, as well as other pathologies. IMPRESSION/MEDICAL DECISION MAKING: Patient with complex past GI history with a history of complicated Crohn's. Prior resection of anastomosis as well as more significantly a recent anal/rectal dilation 2 days ago. Since then he been experiencing some fevers and sweats. Increased lower abdominal pain. Ongoing constipation issues over the past several months. Some tenderness to the lower abdomen. Somewhat tachycardic. Did order in addition to basic blood work cultures and lactate as given his recent procedure question if there may be some bacteremia. Will obtain CT imaging of the abdomen pelvis to look for any signs of perforation given the recent procedure as well or other inflammatory changes. He is maintained on Humira obviously raising concerns for an occult infection given his immunosuppressed status. Given some IV hydration here and Dilaudid for pain which she states has been helpful in the past. Without significant vomiting and lower suspicion at this time for small bowel obstruction. Denies any chest pain or URI symptoms. Denies significant pulmonary symptoms. Denying urinary symptoms now. Did review records from the [facility] medical record system regarding the operative report as well as recent outpatient visit with colorectal surgery anal dilation with trace blood noted with Surgifoam placed 2 days ago.. Blood work here returned with stable mild anemia. No significant leukocytosis is noted. Normal lactate. Procalcitonin and CRP elevated as well as ESR. Mild hyponatremia of 132. Normal creatinine of 0.82. No evidence of hepatitis or pancreatitis based on labs. Normal troponin doubt cardiac etiology. CT report shows evidence of a large amount of stool in the colon concerning for distal large bowel obstruction with a decompressed and narrowed rectum possibility of a stricture exist. There are some thickening of the distal colon and rectum nonspecific for colitis. They do mention on the reported distended gallbladder without findings however of gallbladder wall thickening pericholecystic fluid and lower suspicion for cholecystitis as this is not the significant area of his discomfort. Discussed these findings with our general surgery team here. The only possible surgical intervention would be may be colostomy but generally bowel rest and antibiotic would be for especially with his ongoing fever. Discussed with the patient and did reach out to on-call GI here this morning. Will order Zosyn given the fever and recent anal dilation for any possible bacterial component. Discussed with patient and that given the fever with elevated inflammatory and procalcitonin as well as the slight inflammation the rectal area with his history of Crohn's would find any surgical procedure to be only emergent in nature. Discussed with the [facility] surgery team via phone as had recent procedure by their colorectal team and they had had no specific additional recommendations. Will bring in for IV antibiotics pending cultures and improvement of his symptoms. Tylenol to treat his pain here was given an additional dose of Dilaudid. Discussed with [facility] hospitalist DIAGNOSIS: Abdominal pain, constipation, colitis, fever DISPOSITION: Hospitalist will evaluate Patient was agreeable with this plan. Past Med/Surg History Medical History Abdominal fistula Bronchitis Crohns disease Family History Other Family history non-contributory Social History Smoking Status: Never smoker Do You Dip or Chew Tobacco: No; Tobacco Cessation Education Requested by Patient: No Hx Alcohol Use: Yes Alcohol type: hard liquor Hx Substance Use: No Preferred Language: Moroccan Communication Ability: Effective Telemarketing Agent Required: No Beliefs That Will Affect Care: Jainism Current Living Situation: Significant Other Current Living Situation Comment: [place] Feels Safe at Home: Yes Safety Concerns: Feels Safe At This Time Assistive Devices: Denture - Upper, Glasses and Hearing Aid - Bilateral Allergies Allergies Allergy/AdvReac Type Severity Reaction Status Date / Time aspirin Allergy Severe HIVES Verified 09/12/22 10:21 oxycodone Allergy Severe Seizure, Unverified 11/17/22 09:09 chills, shakes, eyes rolled back in head Sulfa (Sulfonamide Allergy Severe HIVES Verified 09/12/22 10:21 Antibiotics) Home Meds Home Medications Medication Instructions Recorded Confirmed adalimumab 40 mg/0.8 mL 40 mg subcut DIRECTED 04/11/18 11/17/22 subcutaneous syringe kit (Humira) cholecalciferol (vitamin D3) 25 1,000 unit PO DAILY 04/11/18 11/17/22 mcg (1,000 unit) capsule (Vitamin D3) hydrocodone 10 mg-acetaminophen 1 tab PO DIRECTED PRN Pain 04/11/18 11/17/22 325 mg tablet (Cadet) ascorbic acid (vitamin C) 500 mg 500 mg PO DAILY 11/17/22 11/17/22 tablet (Vitamin C) lisinopril 10 mg tablet 10 mg PO DAILY 11/17/22 11/17/22 zinc 50 mg tablet 50 mg PO DAILY 11/17/22 11/17/22 Results & Data (ED) Vital Signs Vital Signs - 24 hr 11/17/22 06:51 11/17/22 07:16 11/17/22 07:17 Temperature 37.7 C H Temperature Source Temporal Artery Scan Pulse Rate 120 H Pulse Rate [Left Apical] 110 H Pulse Rate from SpO2 Sensor Pulse Rhythm [Left Apical] Regular Respiratory Rate 16 16 Respiratory Effort / Characteristics Non-Labored Non-Labored Spontaneous Respiratory Depth Normal Normal Blood Pressure 118/71 Blood Pressure [Left Arm] 140/84 Blood Pressure Mean 86 Blood Pressure Mean [Left Arm] 102 Pulse Oximetry 98 97 97 Oxygen Delivery Method Room Air Room Air Room Air Sepsis Recent Fever Within 48 Hours No Sepsis New/Unexplained Change in Mental Status N/A Sepsis Action Taken by Nursing No Action Required 11/17/22 07:16 11/17/22 07:14 11/17/22 07:20 Temperature Temperature Source Pulse Rate 111 H 110 H 112 H Pulse Rate [Left Apical] Pulse Rate from SpO2 Sensor 111 H Pulse Rhythm [Left Apical] Respiratory Rate 12 12 Respiratory Effort / Characteristics Respiratory Depth Blood Pressure Blood Pressure [Left Arm] Blood Pressure Mean Blood Pressure Mean [Left Arm] Pulse Oximetry 98 97 Oxygen Delivery Method Room Air Room Air Sepsis Recent Fever Within 48 Hours Sepsis New/Unexplained Change in Mental Status Sepsis Action Taken by Nursing 11/17/22 07:30 11/17/22 07:40 11/17/22 07:50 Temperature Temperature Source Pulse Rate 109 H 96 H 91 H Pulse Rate [Left Apical] Pulse Rate from SpO2 Sensor 110 H 97 H 93 H Pulse Rhythm [Left Apical] Respiratory Rate 17 14 17 Respiratory Effort / Characteristics Respiratory Depth Blood Pressure Blood Pressure [Left Arm] Blood Pressure Mean Blood Pressure Mean [Left Arm] Pulse Oximetry 98 98 97 Oxygen Delivery Method Room Air Room Air Room Air Sepsis Recent Fever Within 48 Hours Sepsis New/Unexplained Change in Mental Status Sepsis Action Taken by Nursing 11/17/22 08:00 11/17/22 08:33 11/17/22 08:10 Temperature 38.3 C H Temperature Source Oral Pulse Rate 92 H 96 H Pulse Rate [Left Apical] Pulse Rate from SpO2 Sensor 92 H 94 H Pulse Rhythm [Left Apical] Respiratory Rate 22 16 Respiratory Effort / Characteristics Respiratory Depth Blood Pressure 135/61 Blood Pressure [Left Arm] Blood Pressure Mean 85 Blood Pressure Mean [Left Arm] Pulse Oximetry 98 98 Oxygen Delivery Method Room Air Room Air Sepsis Recent Fever Within 48 Hours Sepsis New/Unexplained Change in Mental Status Sepsis Action Taken by Nursing 11/17/22 09:30 11/17/22 10:05 11/17/22 11:14 Temperature 37.5 C Temperature Source Oral Pulse Rate 94 H 81 Pulse Rate [Left Apical] Pulse Rate from SpO2 Sensor 94 H Pulse Rhythm [Left Apical] Respiratory Rate 16 Respiratory Effort / Characteristics Respiratory Depth Blood Pressure 147/75 H Blood Pressure [Left Arm] Blood Pressure Mean 99 Blood Pressure Mean [Left Arm] Pulse Oximetry 96 Oxygen Delivery Method Room Air Sepsis Recent Fever Within 48 Hours Sepsis New/Unexplained Change in Mental Status Sepsis Action Taken by Nursing 11/17/22 11:00 11/17/22 11:30 Temperature Temperature Source Pulse Rate 83 81 Pulse Rate [Left Apical] Pulse Rate from SpO2 Sensor 84 80 Pulse Rhythm [Left Apical] Respiratory Rate 15 16 Respiratory Effort / Characteristics Respiratory Depth Blood Pressure 119/67 116/65 Blood Pressure [Left Arm] Blood Pressure Mean 84 82 Blood Pressure Mean [Left Arm] Pulse Oximetry 94 96 Oxygen Delivery Method Room Air Room Air Sepsis Recent Fever Within 48 Hours Sepsis New/Unexplained Change in Mental Status Sepsis Action Taken by Nursing Laboratory Data 11/17/22 07:12 11/17/22 07:12 Lab Results 11/17/22 11/17/22 11/17/22 Range/Units 07:12 07:12 07:12 WBC 7.26 (4.8-10.8) K/ul RBC 4.25 L (4.70-6.10) M/uL Hgb 10.9 L (14.0-18.0) g/dl Hct 34.0 L (42.0-52.0) % MCV 80.0 (80.0-100.0) fL MCH 25.6 (25.0-34.0) pg MCHC 32.1 (32.0-36.0) g/dL RDW Std Deviation 41.8 (36.4-46.3) fL RDW Coeff of Rajiv 14.3 (11.5-14.5) % Plt Count 273 (130-400) K/uL MPV 10.3 (9.4-12.4) fL Immature Gran % (Auto) 0.4 % Neut % (Auto) 70.9 % Lymph % (Auto) 14.7 % [place] % (Auto) 13.1 % Eos % (Auto) 0.3 % Baso % (Auto) 0.6 % Neut # (Auto) 5.15 (1.40-6.50) K/uL Lymph # (Auto) 1.07 L (1.2-3.4) K/uL [place] # (Auto) 0.95 H (0.11-0.59) K/uL Eos # (Auto) 0.02 (0-0.50) K/uL Baso # (Auto) 0.04 (0-0.2) K/uL Immature Gran # (Auto) 0.03 (0.01-0.20) K/uL ESR (0-20) mm/hr PT 11.1 (9.0-12.0) Seconds INR 1.0 (0.9-1.1) Sodium 132 L (136-145) mmol/L Potassium 4.2 (3.5-5.1) mmol/L Chloride 100 (98-107) mmol/L Carbon Dioxide 26 (21-32) mmol/L Anion Gap 6 (3-11) BUN 17 (6-23) mg/dl Creatinine 0.82 (0.6-1.4) mg/dl Est Cr Clr Drug Dosing 97.7 ml/min Est GFR ( Amer) 110.6 ml/min Est GFR (Non-Af Amer) 95.4 ml/min BUN/Creatinine Ratio 20.7 H (10-20) Glucose 110 H (70-99(Fasting)) mg/dl Lactate (0.4-2.0) mmol/L Calcium 8.8 (8.6-10.3) mg/dl Total Bilirubin 0.4 (0.2-1.0) mg/dl AST 24 (13-39) U/L ALT 20 (7-52) U/L Alkaline Phosphatase 65 (34-104) U/L Troponin I High Sens 5.5 (0-20) pg/ml C-Reactive Protein 10.94 H (0-0.5) mg/dl Total Protein 6.9 (6.0-8.3) gm/dl Albumin 3.4 (3.4-5.0) gm/dl Globulin 3.5 (2.5-4.0) gm/dl Albumin/Globulin Ratio 1.0 (0.9-2) Lipase 32 (11-82) U/L Procalcitonin (0-0.5) ng/ml Urine Color Urine Appearance (Clear) Urine pH (4.5-7.5) Ur Specific [place] (1.000-1.030) Urine Protein (Negative) Urine Glucose (UA) (Negative) Urine Ketones (Negative) Urine Blood (Negative) Urine Nitrite (Negative) Urine Bilirubin (Negative) Urine Urobilinogen (Negative) Ur Leukocyte Esterase (Negative) Urine WBC (Auto) (0-5) /hpf Urine RBC (Auto) (0-4) /hpf U Hyaline Cast (Auto) (0-5) /lpf U Epithel Cells (Auto) (0-5) /lpf Urine Bacteria (Auto) (Negative) SARS-CoV-2, RNA, NAAT (NEGATIVE) 11/17/22 11/17/22 11/17/22 Range/Units 07:12 07:12 07:12 WBC (4.8-10.8) K/ul RBC (4.70-6.10) M/uL Hgb (14.0-18.0) g/dl Hct (42.0-52.0) % MCV (80.0-100.0) fL MCH (25.0-34.0) pg MCHC (32.0-36.0) g/dL RDW Std Deviation (36.4-46.3) fL RDW Coeff of Rajiv (11.5-14.5) % Plt Count (130-400) K/uL MPV (9.4-12.4) fL Immature Gran % (Auto) % Neut % (Auto) % Lymph % (Auto) % [place] % (Auto) % Eos % (Auto) % Baso % (Auto) % Neut # (Auto) (1.40-6.50) K/uL Lymph # (Auto) (1.2-3.4) K/uL [place] # (Auto) (0.11-0.59) K/uL Eos # (Auto) (0-0.50) K/uL Baso # (Auto) (0-0.2) K/uL Immature Gran # (Auto) (0.01-0.20) K/uL ESR 53 H (0-20) mm/hr PT (9.0-12.0) Seconds INR (0.9-1.1) Sodium (136-145) mmol/L Potassium (3.5-5.1) mmol/L Chloride (98-107) mmol/L Carbon Dioxide (21-32) mmol/L Anion Gap (3-11) BUN (6-23) mg/dl Creatinine (0.6-1.4) mg/dl Est Cr Clr Drug Dosing ml/min Est GFR ( Amer) ml/min Est GFR (Non-Af Amer) ml/min BUN/Creatinine Ratio (10-20) Glucose (70-99(Fasting)) mg/dl Lactate 1.1 (0.4-2.0) mmol/L Calcium (8.6-10.3) mg/dl Total Bilirubin (0.2-1.0) mg/dl AST (13-39) U/L ALT (7-52) U/L Alkaline Phosphatase (34-104) U/L Troponin I High Sens (0-20) pg/ml C-Reactive Protein (0-0.5) mg/dl Total Protein (6.0-8.3) gm/dl Albumin (3.4-5.0) gm/dl Globulin (2.5-4.0) gm/dl Albumin/Globulin Ratio (0.9-2) Lipase (11-82) U/L Procalcitonin 2.01 H (0-0.5) ng/ml Urine Color Urine Appearance (Clear) Urine pH (4.5-7.5) Ur Specific [place] (1.000-1.030) Urine Protein (Negative) Urine Glucose (UA) (Negative) Urine Ketones (Negative) Urine Blood (Negative) Urine Nitrite (Negative) Urine Bilirubin (Negative) Urine Urobilinogen (Negative) Ur Leukocyte Esterase (Negative) Urine WBC (Auto) (0-5) /hpf Urine RBC (Auto) (0-4) /hpf U Hyaline Cast (Auto) (0-5) /lpf U Epithel Cells (Auto) (0-5) /lpf Urine Bacteria (Auto) (Negative) SARS-CoV-2, RNA, NAAT (NEGATIVE) 11/17/22 11/17/22 Range/Units 07:16 07:32 WBC (4.8-10.8) K/ul RBC (4.70-6.10) M/uL Hgb (14.0-18.0) g/dl Hct (42.0-52.0) % MCV (80.0-100.0) fL MCH (25.0-34.0) pg MCHC (32.0-36.0) g/dL RDW Std Deviation (36.4-46.3) fL RDW Coeff of Rajiv (11.5-14.5) % Plt Count (130-400) K/uL MPV (9.4-12.4) fL Immature Gran % (Auto) % Neut % (Auto) % Lymph % (Auto) % [place] % (Auto) % Eos % (Auto) % Baso % (Auto) % Neut # (Auto) (1.40-6.50) K/uL Lymph # (Auto) (1.2-3.4) K/uL [place] # (Auto) (0.11-0.59) K/uL Eos # (Auto) (0-0.50) K/uL Baso # (Auto) (0-0.2) K/uL Immature Gran # (Auto) (0.01-0.20) K/uL ESR (0-20) mm/hr PT (9.0-12.0) Seconds INR (0.9-1.1) Sodium (136-145) mmol/L Potassium (3.5-5.1) mmol/L Chloride (98-107) mmol/L Carbon Dioxide (21-32) mmol/L Anion Gap (3-11) BUN (6-23) mg/dl Creatinine (0.6-1.4) mg/dl Est Cr Clr Drug Dosing ml/min Est GFR ( Amer) ml/min Est GFR (Non-Af Amer) ml/min BUN/Creatinine Ratio (10-20) Glucose (70-99(Fasting)) mg/dl Lactate (0.4-2.0) mmol/L Calcium (8.6-10.3) mg/dl Total Bilirubin (0.2-1.0) mg/dl AST (13-39) U/L ALT (7-52) U/L Alkaline Phosphatase (34-104) U/L Troponin I High Sens (0-20) pg/ml C-Reactive Protein (0-0.5) mg/dl Total Protein (6.0-8.3) gm/dl Albumin (3.4-5.0) gm/dl Globulin (2.5-4.0) gm/dl Albumin/Globulin Ratio (0.9-2) Lipase (11-82) U/L Procalcitonin (0-0.5) ng/ml Urine Color Yellow Urine Appearance Clear (Clear) Urine pH 5.5 (4.5-7.5) Ur Specific [place] > 1.045 H (1.000-1.030) Urine Protein Negative (Negative) Urine Glucose (UA) Negative (Negative) Urine Ketones Negative (Negative) Urine Blood Negative (Negative) Urine Nitrite Negative (Negative) Urine Bilirubin Negative (Negative) Urine Urobilinogen Negative (Negative) Ur Leukocyte Esterase 2+ H (Negative) Urine WBC (Auto) >30 H (0-5) /hpf Urine RBC (Auto) 0-4 (0-4) /hpf U Hyaline Cast (Auto) 1-5 (0-5) /lpf U Epithel Cells (Auto) 0-5 (0-5) /lpf Urine Bacteria (Auto) Negative (Negative) SARS-CoV-2, RNA, NAAT NEGATIVE (NEGATIVE) Administered Medications Sodium Chloride (Nss 1000ml) 1,000 mls @ 125 mls/hr IV .Q8H GRETCHEN Stop: 12/17/22 13:06 Last Admin: 11/17/22 13:11 Dose: 125 mls/hr Documented By: FLORB Discontinued Medications Hydromorphone HCl (Hydromorphone Inj 0.5 Mg/0.5 Ml Syr) 0.5 mg IV NOW STA Stop: 11/17/22 07:08 Last Admin: 11/17/22 07:25 Dose: 0.5 mg Documented By: BERNIE Hydromorphone HCl (Hydromorphone Inj 1 Mg/Ml Syringe) 1 mg IV NOW STA Stop: 11/17/22 10:14 Last Admin: 11/17/22 10:42 Dose: 1 mg Documented By: CA Sodium Chloride (Nss 1000ml) 1,000 mls @ 999 mls/hr IV .Q1H1M STA Stop: 11/17/22 07:55 Last Infusion: 11/17/22 08:34 Dose: 0 mls/hr Documented By: Admin: 11/17/22 07:31 Dose: 999 mls/hr Documented By: CA Acetaminophen (Ofirmev) 1,000 mg in 100 mls @ 400 mls/hr IV NOW STA Stop: 11/17/22 08:50 Last Infusion: 11/17/22 09:54 Dose: 0 mls/hr Documented By: Admin: 11/17/22 08:47 Dose: 400 mls/hr Documented By: CA Piperacillin Sod/Tazobactam Sod (Zosyn) 4.5 gm in 120 mls @ 240 mls/hr IV NOW ONE Stop: 11/17/22 10:42 Last Infusion: 11/17/22 11:52 Dose: 0 mls/hr Documented By: Admin: 11/17/22 10:44 Dose: 240 mls/hr Documented By: CA Ioversol (Optiray 320 100ml) 95 ml IV ONCE ONE Stop: 11/17/22 08:26 Last Admin: 11/17/22 08:25 Dose: 95 ml Documented By: MIRIAM Imaging Data Radiologist's Impression: Abdomen/Pelvis CT 11/17/22 06:[address] WITH IV CONTRAST CT DOSE: 1050.72 mGy.cm HISTORY: Generalized abdominal pain, s/p rectal dilation, fever, hx crohns TECHNIQUE: Multiaxial CT images of the abdomen and pelvis were performed following the use of intravenous contrast. A dose lowering technique was utilized adhering to the principles of ALARA. COMPARISON STUDY: Abdomen and pelvis CT 04/11/2018. FINDINGS: The lung bases are clear. No pneumoperitoneum. No pneumatosis. No acute fractures identified. Stable enhancing lesion within the liver with the largest in the left hepatic lobe measuring 2.5 cm. These favor hemangiomas. The gallbladder is distended. No gallbladder wall thickening or pericholecystic fluid. This has progressed in the interval. Normal caliber common bile duct. The pancreas, spleen, and adrenal glands are unremarkable. No hydronephrosis. A few subcentimeter hypodense lesions within the kidneys are again noted. These are technically too small to characterize but favor cysts. The main portal vein is patent. Normal caliber abdominal aorta. The a 9 mm lymph node at the aortic bifu rcation image 216 is slightly increased in size. This is likely reactive. No significant pelvic free fluid. The bladder is well-distended. There is mild bladder wall thickening. Stable prominent portacaval lymph nodes. Postoperative changes again noted within the ascending colon. Moderate circumferential thickening involving the distal descending colon, sigmoid colon, and rectum with pericolonic fat stranding. This has progressed in the interval. There is perirectal fat stranding/edema which has slightly progressed. Linear sinus tract extending posteriorly from the rectum to the presacral space remains unchanged. This is best seen image 308. No drainable fluid collections identified. Mild pe ricolonic/perirectal lymphadenopathy has slightly progressed. This may be reactive. There is a large amount of stool seen throughout the colon. There is distal decompression at the rectosigmoid junction best seen on image 306. Proximal to this site there is a large amount of stool including a 2.7 cm rectal stool ball. Therefore, these findings are concerning for a distal large bowel obstruction due to the decompressed/narrowed rectum. This raises the possibility of underlying stricture. The calcified 2.7 cm rectal stool ball may be impacted and could result in the suspected large bowel obstruction. Thickening of the distal colon and rectum is consistent with a nonspecific colitis. This has p rogressed in the interval could represent the patient's underlying ulcerative colitis versus a stercoral colitis. No dilated loops of small bowel at this time. IMPRESSION: 1. There is a large amount of stool seen throughout the colon with distal d ecompression of the large bowel at the rectosigmoid junction. Therefore, these findings are concerning for a distal large bowel obstruction due to the decompressed/narrowed rectum. This raises the possibility of underlying stricture. There is a calcified 2.7 cm rectal stool ball may be impacted and could result in the suspected large bowel obstruction. 2. Thickening of the distal colon and rectum is consistent with a nonspecific colitis. This has progressed in the interval and could represent the patient's underlying ulcerative colitis versus a stercoral colitis. 3. Distended gallbladder. This has progressed in the interval. However, no gallbladder wall thickening or pericholecystic fluid. 4. No significant change in the sinus tract extending posteriorly from the rectum. No drainable fluid collections. 5. Additional findings as described above. ACT 112: Negative or not required by law. Electronically signed by: Sami Handy M.D. 11/17/2022 9:22 AM Discharge Plan Visit Data Chief Complaint: Abdominal Pain Stated Complaint: ABD PAIN ED Provider: Car Grover Discharge Problem: Abdominal pain, Constipation, Crohns disease, Fever, Colitis Patient Disposition: Admitted As Inpatient Discharge Instructions Interventions: ED Discharge Assessment Last Done: 11/17/22 12:40 Abdominal pain Qualifiers: Abdominal location: lower abdomen, unspecified Qualified Code(s): R10.30 - Lower abdominal pain, unspecified
[2022-11-17 07:54] LABS: Basophils # (auto) 0.04 K/uL (0-0.2); Basophils % (auto) 0.6 %; Eosinophils # (auto) 0.02 K/uL (0-0.50); Eosinophils % (auto) 0.3 %; Hemoglobin 10.9 g/dl (14.0-18.0); Immature Granulocytes # (auto) 0.03 K/uL (0.01-0.20); Immature Granulocytes % (auto) 0.4 %; Lymphocytes # (auto) 1.07 K/uL (1.2-3.4); Lymphocytes % (auto) 14.7 %; Mean Corpuscular Hemoglobin 25.6 pg (25.0-34.0); Mean Corpuscular Hgb Conc 32.1 g/dL (32.0-36.0); Mean Platelet Volume 10.3 fL (9.4-12.4); Monocytes # (auto) 0.95 K/uL (0.11-0.59); Monocytes % (auto) 13.1 %; Neutrophils # (auto) 5.15 K/uL (1.40-6.50); Neutrophils % (auto) 70.9 %; Platelet Count 273 K/uL (130-400); RDW Coefficient of Variation 14.3 % (11.5-14.5); RDW Standard Deviation 41.8 fL (36.4-46.3); Red Blood Count 4.25 M/uL (4.70-6.10); White Blood Count 7.26 K/ul (4.8-10.8)
[2022-11-17 08:11] LABS: Albumin Level 3.4 gm/dl (3.4-5.0); BUN Creatinine Ratio 20.7 (10-20); Bilirubin,Total 0.4 mg/dl (0.2-1.0); C Reactive Protein 10.94 mg/dl (0-0.5); Calcium 8.8 mg/dl (8.6-10.3); Creatinine Clr Calc Pharmacy 97.7 ml/min; Est GFR (African American) 110.6 ml/min; Est GFR (Non-African American) 95.4 ml/min; Globulin 3.5 gm/dl (2.5-4.0); Potassium 4.2 mmol/L (3.5-5.1); Total Protein 6.9 gm/dl (6.0-8.3)
[2022-11-17 08:16] LABS: Troponin I High Sensitivity 5.5 pg/ml (0-20)
[2022-11-17 08:25] LABS: Prothrombin Time 11.1 Seconds (9.0-12.0)
[2022-11-17] MEDS ORDERED: OPTIRAY 320 100ml IV ONE (08:25)
[2022-11-17] MEDS ORDERED: ACETAMINOPHEN 1,000 MG/100 ML VIAL IV STA (08:36)
--- NOTE | 2022-11-17 09:25 | CT Scan Report ---
ABDOMEN AND PELVIS CT WITH IV CONTRAST CT DOSE: 1050.72 mGy.cm HISTORY: Generalized abdominal pain, s/p rectal dilation, fever, hx crohns TECHNIQUE: Multiaxial CT images of the abdomen and pelvis were performed following the use of intrave nous contrast. A dose lowering technique was utilized adhering to the principles of ALARA. COMPARISON STUDY: Abdomen and pelvis CT 04/11/2018. FINDINGS: The lung bases are clear. No pneumoperitoneum. No pneumatosis. No acute fractures identifie d. Stable enhancing lesion within the liver with the largest in the left hepatic lobe measuring 2.5 c m. These favor hemangiomas. The gallbladder is distended. No gallbladder wall thickening or perichole cystic fluid. This has progressed in the interval. Normal caliber common bile duct. The pancreas, spl een, and adrenal glands are unremarkable. No hydronephrosis. A few subcentimeter hypodense lesions wi thin the kidneys are again noted. These are technically too small to characterize but favor cysts. Th e main portal vein is patent. Normal caliber abdominal aorta. The a 9 mm lymph node at the aortic bif urcation image 216 is slightly increased in size. This is likely reactive. No significant pelvic free fluid. The bladder is well-distended. There is mild bladder wall thickening. Stable prominent portac aval lymph nodes. Postoperative changes again noted within the ascending colon. Moderate circumferent ial thickening involving the distal descending colon, sigmoid colon, and rectum with pericolonic fat stranding. This has progressed in the interval. There is perirectal fat stranding/edema which has sli ghtly progressed. Linear sinus tract extending posteriorly from the rectum to the presacral space rem ains unchanged. This is best seen image 308. No drainable fluid collections identified. Mild pericolo sandy/perirectal lymphadenopathy has slightly progressed. This may be reactive. There is a large amount of stool seen throughout the colon. There is distal decompression at the rectosigmoid junction best seen on image 306. Proximal to this site there is a large amount of stool including a 2.7 cm rectal s tool ball. Therefore, these findings are concerning for a distal large bowel obstruction due to the d ecompressed/narrowed rectum. This raises the possibility of underlying stricture. The calcified 2.7 c m rectal stool ball may be impacted and could result in the suspected large bowel obstruction. Thicke ann-marie of the distal colon and rectum is consistent with a nonspecific colitis. This has progressed in the interval could represent the patient's underlying ulcerative colitis versus a stercoral colitis. No dilated loops of small bowel at this time. IMPRESSION: 1. There is a large amount of stool seen throughout the colon with distal decompression of the large bowel at the rectosigmoid junction. Therefore, these findings are concerning for a distal large bowel obstruction due to the decompressed/narrowed rectum. This raises the possibility of underlying stric ture. There is a calcified 2.7 cm rectal stool ball may be impacted and could result in the suspected large bowel obstruction. 2. Thickening of the distal colon and rectum is consistent with a nonspecific colitis. This has progr essed in the interval and could represent the patient's underlying ulcerative colitis versus a sterco ral colitis. 3. Distended gallbladder. This has progressed in the interval. However, no gallbladder wall thickenin g or pericholecystic fluid. 4. No significant change in the sinus tract extending posteriorly from the rectum. No drainable fluid collections. 5. Additional findings as described above. ACT 112: Negative or not required by law. Electronically signed by: Sami Handy M.D. 11/17/2022 9:22 AM
[2022-11-17] MEDS ORDERED: PIPERACILLIN/TAZOBACTAM 4.5 GM/120 ML BAG IV ONE (10:13)
[2022-11-17] MEDS ORDERED: HYDROmorphone INJ 1 MG/ML SYRINGE IV STA (10:13)
[2022-11-17 11:47] LABS: Appearance Urine Clear (Clear); Bacteria Urine Automated Negative (Negative); Bilirubin Urine Negative (Negative); Blood Urine Negative (Negative); Color Urine Yellow; Epithelial Cell Urine Auto 0-5 /lpf (0-5); Glucose Urine UA Negative (Negative); Ketones Urine Negative (Negative); Leukocyte Esterase Urine 2+ (Negative); Nitrite Urine Negative (Negative); Protein Urine Negative (Negative); RBC Urine Automated 0-4 /hpf (0-4); Specific Gravity Urine > 1.045 (1.000-1.030); Urobilinogen Urine Negative (Negative); WBC Urine Automated >30 /hpf (0-5); pH Urine 5.5 (4.5-7.5)
[2022-11-17] MEDS ORDERED: HYDROmorphone INJ 0.5 MG/0.5 ML SYR IV PRN (13:07)
[2022-11-17] MEDS: SODIUM CHLORIDE 0.9% 1000ML 1,000 ML IV SCH ×2 (13:11→21:08)
--- NOTE | 2022-11-17 13:58 | History & Physical Report ---
Date of Service November 17, 2022 Assessment & Plan (1) Fever: (2) Large bowel obstruction: (3) Colitis: (4) Gastrointestinal anastomotic stricture: (5) Gallbladder dilatation: Plan Pt is a 62yoM with PMHx significant for chronic Crohn's diagnosed at age 17, anal stenosis s/p recent anal dilatation on 11/15/22 and HTN admitted with fever and a large bowel obstruction. Large Bowel Obstruction/Crohn's/Anal Stenosis Hx of Crohn's since age 17, currently treated with Humira, follows with [facility] Has been having chronic constipation episodes since April, notes fecal overflow incontinence occasionally. Last colonoscopy August 2022 aborted due to poor prep but noted anal stricture and rectal polyp. -Had anal exam under anesthesia with dilation of anal canal. States he developed LLQ pain later that evening. Subsequently developed a fever that would not resolve so presented for evaluation. In the ED, noted highest temperature of 38.3. Labs showed an elevated CRP of 10.94, procal of 2.01 and Na of 132. WBC wnl, hemodynamically stable. CT abd pelvis concerning for large bowel obstruction, stricture, impacted rectal stool ball measuring 2.7cm, nonspecific colitis and a progressively distended gallbladder with no signs of acute cholecystitis. NPO for bowel rest, IV fluids, GI consult placed IV Zosyn given fever, blood Cx x2 pending. IV dilaudid for pain, cautious use in this pt's setting of chronic constipation and bowel obstruction. Consider colorectal surgery input as well once pt more stable. Gallbladder Distention CT abd/pelvis noted a progressively distended gallbladder with no signs of acute cholecystitis. gallbladder US ordered for further evaluation Consider general surgery consult based on findings. HTN BP currently in normal range Holding home PO meds, consider re-starting as needed CODE STATUS: Full code Diet: NPO for bowel rest DVT prophylaxis: Lovenox SQ Dispo: Med/Surg with tele History of Present Illness Chief Complaint: Abdominal Pain Primary Care Provider: Denzel Pabon MD Pt is a 62yoM with PMHx significant for chronic Crohn's diagnosed at age 17, anal stenosis s/p recent anal dilatation on 11/15/22 and HTN who is being admitted with fever and a noted large bowel obstruction. he notes he has had a Hx of Crohn's since age 17, currently treated with Humira and follows with [facility]. States that he has been having chronic constipation episodes since April. he states he has episodes of fecal overflow incontinence occasionally but does not "push"/strain to have a BM. Last colon oscopy was August 2022 an d he notes it was aborted due to poor prep. chart review shows that they noted an anal stricture and rectal polyp. He notes that on , he had an anal exam under anesthesia with dilation of anal canal. States he developed LLQ pain later that evening. Also subsequently developed fevers as high as 101 which caused him to present to the ED. he notes that the fevers would go away after taking OTC meds but would come right back. ED Course: highest temperature of 38.3, elevated CRP of 10.94, procal of 2.01 and Na of 132. WBC wnl, hemodynamically stable. CT abd pelvis concerning for large bowel obstruction, stricture, impacted rectal stool ball measuring 2.7cm, nonspecific colitis and a progressively distended gallbladder with no signs of acute cholecystitis. Treated with Dilaudid, Tylenol and Zosyn in the ED. Allergies Allergy/AdvReac Type Severity Reaction Status Date / Time aspirin Allergy Severe HIVES Verified 09/12/22 10:21 oxycodone Allergy Severe Seizure, Unverified 11/17/22 09:09 chills, shakes, eyes rolled back in head Sulfa (Sulfonamide Allergy Severe HIVES Verified 09/12/22 10:21 Antibiotics) Home Medications Medication Instructions Recorded Confirmed Type adalimumab 40 mg/0.8 mL 40 mg subcut DIRECTED 04/11/18 11/17/22 History subcutaneous syringe kit (Humira) cholecalciferol (vitamin D3) 25 1,000 unit PO DAILY 04/11/18 11/17/22 History mcg (1,000 unit) capsule (Vitamin D3) hydrocodone 10 mg-acetaminophen 1 tab PO DIRECTED PRN Pain 04/11/18 11/17/22 History 325 mg tablet ([place]) ascorbic acid (vitamin C) 500 mg 500 mg PO DAILY 11/17/22 11/17/22 History tablet (Vitamin C) lisinopril 10 mg tablet 10 mg PO DAILY 11/17/22 11/17/22 History zinc 50 mg tablet 50 mg PO DAILY 11/17/22 11/17/22 History Past Med/Surg History Medical History Abdominal fistula Bronchitis Crohns disease Family History Other Family history non-contributory Social History Smoking Status: Never smoker Do You Dip or Chew Tobacco: No; Tobacco Cessation Education Requested by Patient: No Hx Alcohol Use: Yes Alcohol type: hard liquor Hx Substance Use: No Preferred Language: Lithuanian Communication Ability: Effective Bed Laster Required: No Beliefs That Will Affect Care: Church Current Living Situation: Significant Other Current Living Situation Comment: [place] Feels Safe at Home: Yes Safety Concerns: Feels Safe At This Time Assistive Devices: Denture - Upper, Glasses and Hearing Aid - Bilateral Review of Systems Review of Systems: All systems reviewed & are unremarkable except as noted in HPI & below Physical Exam Physical Exam: General: Alert, oriented. No acute distress Psych: Appropriate mood and affect Neuro: No gross deficits HEENT: NC/AT CV: RRR, Normal s1, s2. No murmurs appreciated Resp: Breath sounds clear bilaterally, no increased effort of breathing. Abdomen: Soft, tender in both LLQ and LUQ. No guarding. Extremities: No edema in lower extremities bilaterally. Results & Data Results & Data Vital Signs (Past 12 Hours) Vital Signs Temp Pulse Pulse Resp BP BP Pulse Ox 11/17/22 11:30 81 16 116/65 96 11/17/22 11:00 83 15 119/67 94 11/17/22 11:14 81 11/17/22 10:05 37.5 C 11/17/22 09:30 94 H 16 147/75 H 96 11/17/22 08:10 96 H 16 135/61 98 11/17/22 08:33 38.3 C H 11/17/22 08:00 92 H 22 98 11/17/22 07:50 91 H 17 97 11/17/22 07:40 96 H 14 98 11/17/22 07:30 109 H 17 98 11/17/22 07:20 112 H 12 97 11/17/22 07:14 110 H 12 98 11/17/22 07:16 111 H 11/17/22 07:17 97 11/17/22 07:16 110 H 16 140/84 97 11/17/22 06:51 37.7 C H 120 H 16 118/71 98 O2 Del Method 11/17/22 11:30 Room Air 11/17/22 11:00 Room Air 11/17/22 11:14 11/17/22 10:05 11/17/22 09:30 Room Air 11/17/22 08:10 Room Air 11/17/22 08:33 11/17/22 08:00 Room Air 11/17/22 07:50 Room Air 11/17/22 07:40 Room Air 11/17/22 07:30 Room Air 11/17/22 07:20 Room Air 11/17/22 07:14 Room Air 11/17/22 07:16 11/17/22 07:17 Room Air 11/17/22 07:16 Room Air 11/17/22 06:51 Room Air
--- NOTE | 2022-11-17 14:03 | Electrocardiogram Report ---
Test Reason : Blood Pressure : / mmHG Vent. Rate : 109 BPM Atrial Rate : 109 BPM P-R Int : 166 ms QRS Dur : 076 ms QT Int : 312 ms P-R-T Axes : 000 -25 143 degrees QTc Int : 420 ms Sinus tachycardia Left atrial enlargement T wave abnormality, consider lateral ischemia Abnormal ECG No previous ECGs available Confirmed by Shivam Fallon ([id number]) on 11/17/2022 2:03:01 PM Referred By: REFERRED SELF Confirmed By:Shivam Fallon
[2022-11-17] MEDS ORDERED: POLYETHYLENE (MIRALAX) 17 GM PACK PO PRN (14:40)
[2022-11-17] MEDS: ENOXAPARIN INJ 40 MG/0.4 ML SYR SQ SCH (15:08)
[2022-11-17] MEDS ORDERED: ACETAMINOPHEN 1,000 MG/100 ML VIAL IV PRN (15:22)
[2022-11-17] MEDS ORDERED: ONDANSETRON INJ 2 MG/ML 2 ML VIAL IV PRN (15:23)
[2022-11-17] MEDS: PIPERACILLIN/TAZOBACTAM 4.5 GM in DEXTROSE 5% 100 ML IV SCH ×2 (15:44→23:09)
[2022-11-17] MEDS: ACETAMINOPHEN 1,000 MG/100 ML VIAL IV PRN (19:35)
--- NOTE | 2022-11-17 22:07 | Ultrasound Report ---
ULTRASOUND RIGHT UPPER QUADRANT ABDOMEN CLINICAL HISTORY: Gallbladder distention seen by CT. COMPARISON STUDY: Abdominal CT dated 11/17/2022. TECHNIQUE: Real-time, grayscale, and color flow sonography of the right upper quadrant of the abdomen was performed. Images are reviewed in the transverse and longitudinal planes. FINDINGS: Liver: The liver is normal in size and echotexture. There is no intrahepatic biliary ductal dilatatio n. The main portal vein is patent. A hemangioma in the right lobe measures up to 1.1 cm. Gallbladder: There is minimal biliary sludge. The gallbladder is distended but otherwise normal in ap pearance. No shadowing gallstones are identified. There is no gallbladder wall thickening or perichol ecystic fluid. A sonographic Collins's sign is reportedly absent. The common bile duct measures up to 0.2 cm in diameter. Pancreas: Not visualized due to overlying bowel gas. Right kidney: Survey images of the right kidney demonstrate normal size and echotexture. There is no hydronephrosis. Ascites: None. IMPRESSION: 1. Distended gallbladder with minimal sludge. No shadowing gallstones are identified and there is no sonographic evidence of acute cholecystitis. 2. There is no intra or extrahepatic biliary ductal dilatation. 3. Nonvisualization of the pancreas. ACT 112: Negative or not required by law. Electronically signed by: Adams Ramos M.D. 11/17/2022 10:05 PM
[2022-11-17] MEDS ORDERED: bisacodyL 10 MG SUPP PR STA (22:23)
[2022-11-17] MEDS: HYDROmorphone INJ 0.5 MG/0.5 ML SYR IV PRN (22:28)
[2022-11-17] MEDS: DOCUSATE SODIUM/SENNA 50/8.6MG TAB PO SCH (22:28)
[2022-11-18] MEDS: HYDROmorphone INJ 0.5 MG/0.5 ML SYR IV PRN ×2 (05:36→16:03)
[2022-11-18 07:00] LABS: Basophils # (auto) 0.04 K/uL (0-0.2); Basophils % (auto) 0.7 %; Eosinophils # (auto) 0.04 K/uL (0-0.50); Eosinophils % (auto) 0.7 %; Hematocrit (blood only) 28.8 % (42.0-52.0); Hemoglobin 9.1 g/dl (14.0-18.0); Immature Granulocytes # (auto) 0.02 K/uL (0.01-0.20); Immature Granulocytes % (auto) 0.3 %; Lymphocytes # (auto) 1.06 K/uL (1.2-3.4); Lymphocytes % (auto) 17.3 %; Mean Corpuscular Hemoglobin 25.9 pg (25.0-34.0); Mean Corpuscular Hgb Conc 31.6 g/dL (32.0-36.0); Mean Corpuscular Volume 81.8 fL (80.0-100.0); Mean Platelet Volume 9.8 fL (9.4-12.4); Monocytes # (auto) 1.03 K/uL (0.11-0.59); Monocytes % (auto) 16.8 %; Neutrophils # (auto) 3.95 K/uL (1.40-6.50); Neutrophils % (auto) 64.2 %; Platelet Count 244 K/uL (130-400); RDW Coefficient of Variation 14.5 % (11.5-14.5); RDW Standard Deviation 42.7 fL (36.4-46.3); Red Blood Count 3.52 M/uL (4.70-6.10); White Blood Count 6.14 K/ul (4.8-10.8)
[2022-11-18 07:11] LABS: Albumin Level 2.8 gm/dl (3.4-5.0); BUN Creatinine Ratio 17.9 (10-20); Bilirubin,Total 0.3 mg/dl (0.2-1.0); Calcium 8.1 mg/dl (8.6-10.3); Creatinine Clr Calc Pharmacy 102.7 ml/min; Est GFR (African American) 112.9 ml/min; Est GFR (Non-African American) 97.4 ml/min; Globulin 2.9 gm/dl (2.5-4.0); Total Protein 5.7 gm/dl (6.0-8.3)
[2022-11-18] MEDS: SODIUM CHLORIDE 0.9% 1000ML 1,000 ML IV SCH ×2 (08:36→22:07)
[2022-11-18] MEDS: DOCUSATE SODIUM/SENNA 50/8.6MG TAB PO SCH ×2 (08:37→20:14)
[2022-11-18] MEDS: PIPERACILLIN/TAZOBACTAM 4.5 GM in DEXTROSE 5% 100 ML IV SCH ×3 (08:47→23:35)
[2022-11-18] MEDS ORDERED: DOCUSATE SODIUM/SENNA 50/8.6MG TAB PO SCH (09:00)
--- NOTE | 2022-11-18 09:43 | XRay Report ---
KUB HISTORY: anal stricture w partial obstruction COMPARISON: CT 11/17/2022 FINDINGS: There is persistent gaseous distention of the large and small bowel with large bowel loops measuring up to 8.5 cm and small bowel loops measuring up to 3 cm. Calcified 2.7 cm structure within the central pelvis again noted. No renal calculi. No ureteral calculi. No pneumoperitoneum or pneuma tosis. No fracture. IMPRESSION: 1. Persistent large and small bowel gaseous distention, possibly secondary to a distal obstruction. C ontinued follow-up is needed. 2. Intraluminal calcification within the rectum again noted. ACT 112: Negative or not required by law. The above report was generated using voice recognition software. It may contain grammatical, syntax o r spelling errors. Electronically signed by: Douglas Arana M.D. 11/18/2022 9:42 AM
[2022-11-18] MEDS: DICYCLOMINE HCL 10 MG CAP PO SCH ×3 (10:08→20:14)
--- NOTE | 2022-11-18 10:17 | Surgery Consultation ---
Date of Consultation November 18, 2022 Assessment & Plan (1) Large bowel obstruction: This is a 62yM with a PMH of Crohn's diagnosed ~50 years ago with history of ileocecal resection in 2014 who has been dealing with chronic constipation since April who presents to the [facility] ED on 11/17/22 with complaints of fevers and abdominal pain. Of significance patient's fevers and abdominal pain started after he underwent an anal dilation procedure with his colorectal surgeon, Dr. Ward with [facility], on 11/15. Upon presentation in our ER he underwent a CT a/p which revealed a large amount of stool seen throughout the colon with distal decompression of the large bowel at the rectosigmoid junction. Therefore, these findings are concerning for a distal large bowel obstruction due to the decompressed/narrowed rectum. This raises the possibility of underlying stricture. There is a calcified 2.7 cm rectal stool ball may be impacted and could result in the suspected large bowel obstruction. There is also thickening of the distal colon and rectum is consistent with a nonspecific colitis. These findings are similar to CT scan he had in August. Last colonoscopy was performed around this time but aborted due to stool burden. At this time would recommend further evaluation by GI. He may benefit from rectal stimulation and bowel regimen per rectum in terms of suppositories/enema's. He is on IVF and Iv abx for concern for colitis. We have no plans for surgical intervention at this time, if he were to require any intervention he may benefit from transfer to [place] where he is connected with a colorectal surgeon there. Will follow along. (2) Crohns disease: Supervising Physician Co-Signing Physician Notes Patient seen and examined, labs and imaging reviewed, agree with above. 62-year-old male with history of Crohn's disease status post ileocecectomy on , with chronic constipation since April and anal stricture status post dilation on Friday with colorectal surgery, presented with fevers. CT scan showed chronic large bowel constipation likely secondary to stricture. He has not been febrile since being started on antibiotics, and he is feeling better. On exam he is afebrile stable vitals. Tender to palpation in the left lower quadrant and pelvis, no guarding. WBC normal, CT scan personally reviewed and interpreted and note significant stool burden in the left colon leading to focal narrowing consistent with a stricture. Difficult to tell whether this is still present or reactive to the recent dilation. Given his symptoms and recent dilation, he may have had some translocation of bacteria and had some developing pelvic sepsis, though this is unclear. He seems to be responding to antibiotics and is passing gas. We will continue with antibiotics, GI seen him and is recommending continued MiraLAX. We will make sure his colorectal surgeon is aware of situation and see if they have other recommendations. No acute surgical intervention, should follow-up with colorectal surgery as an outpatient May advance diet as tolerated, continue with MiraLAX. History of Present Illness Attending Physician: Randy Roth MD History of Present Illness This is a 62yM with a PMH of Crohn's diagnosed ~50 years ago with history of ileocecal resection in 2014 who has been dealing with chronic constipation since April who presents to the [facility] ED on 11/17/22 with complaints of fevers and abdominal pain. Of significance patient's fevers and abdominal pain started after he underwent an anal dilation procedure with his colorectal surgeon, Dr. Ward with [facility], on 11/15. He reports fevers throughout the weekend in addition to severe intermittent cramps in his lower abdomen. Due to symptoms he presented to our ER. He underwent a CT a/p which revealed a large amount of stool seen throughout the colon with distal decompression of the large bowel at the rectosigmoid junction. Therefore, these findings are concerning for a distal large bowel obstruction due to the decompressed/narrowed rectum. This raises the possibility of underlying stricture. There is a calcified 2.7 cm rectal stool ball may be impacted and could result in the suspected large bowel obstruction. There is also thickening of the distal colon and rectum is consistent with a nonspecific colitis. The patient reports no fevers this AM, and although he continues with severe abdominal cramping, the times intervals when they occur are getting longer. Of note the patient was here in August with similar CT scan findings. He was followed by GI and underwent a colonoscopy during this time which was unfortunately aborted due to poor visualization, but noted to have a rectal polyp and anal stricture. He has taken daily miralax over the past couple of months without success. He tried Linzess but did not continue it due to unpleasant side effects. The patient reports not having a normal BM since September. He has been passing flatus and having loose stools in terms of leakage. He is currently tolerating a clear liquid diet at the moment without nausea/vomiting. Allergies Allergy/AdvReac Type Severity Reaction Status Date / Time aspirin Allergy Severe HIVES Verified 09/12/22 10:21 oxycodone Allergy Severe Seizure, Unverified 11/17/22 09:09 chills, shakes, eyes rolled back in head Sulfa (Sulfonamide Allergy Severe HIVES Verified 09/12/22 10:21 Antibiotics) Home Medications Medication Instructions Recorded Confirmed Type adalimumab 40 mg/0.8 mL 40 mg subcut DIRECTED 04/11/18 11/17/22 History subcutaneous syringe kit (Humira) cholecalciferol (vitamin D3) 25 1,000 unit PO DAILY 04/11/18 11/17/22 History mcg (1,000 unit) capsule (Vitamin D3) hydrocodone 10 mg-acetaminophen 1 tab PO DIRECTED PRN Pain 04/11/18 11/17/22 History 325 mg tablet ([place]) ascorbic acid (vitamin C) 500 mg 500 mg PO DAILY 11/17/22 11/17/22 History tablet (Vitamin C) lisinopril 10 mg tablet 10 mg PO DAILY 11/17/22 11/17/22 History zinc 50 mg tablet 50 mg PO DAILY 11/17/22 11/17/22 History Patient History Medical History Abdominal fistula Bronchitis Crohns disease Family History Other Family history non-contributory Social History Smoking Status: Never smoker Do You Dip or Chew Tobacco: No; Tobacco Cessation Education Requested by Patient: No Hx Alcohol Use: Yes Alcohol type: hard liquor Hx Substance Use: No Preferred Language: American Communication Ability: Effective 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 Beliefs That Will Affect Care: [employer] Current Living Situation: Significant Other Current Living Situation Comment: [place] Feels Safe at Home: Yes Safety Concerns: Feels Safe At This Time Assistive Devices: None Review of Systems Constitutional: + fever Respiratory: no dyspnea Gastrointestinal: + abdominal pain (left lower abdominal pain), + bloating, + constipation and + problem reported (leakage of loose stools, no real BM); no nausea and no vomiting Physical Exam Physical Exam: awake/alert, appears in pain with intermittent abdominal cramping, otherwise comfortable Respiratory: normal respiratory effort Gastrointestinal (Abdomen): Inspection/Auscultation: + abdomen distended Percussion/Palpation: + abdomen tender (ttp in the LLQ) and abdomen soft Results & Data Vital Signs (Past 12 Hours) Vital Signs Temp Pulse Pulse Resp BP Pulse Ox O2 Del Method 11/18/22 07:44 37.2 C 85 19 133/73 96 Room Air 11/18/22 04:00 37.2 C 77 20 110/57 L 97 Room Air 11/17/22 22:14 82 11/17/22 23:22 37.1 C 82 20 118/68 96 Room Air Diagnostic Findings ABDOMEN AND PELVIS CT WITH IV CONTRAST CT DOSE: 1050.72 mGy.cm HISTORY: Generalized abdominal pain, s/p rectal dilation, fever, hx crohns TECHNIQUE: Multiaxial CT images of the abdomen and pelvis were performed following the use of intravenous contrast. A dose lowering technique was utilized adhering to the principles of ALARA. COMPARISON STUDY: Abdomen and pelvis CT 04/11/2018. FINDINGS: The lung bases are clear. No pneumoperitoneum. No pneumatosis. No acute fractures identified. Stable enhancing lesion within the liver with the largest in the left hepatic lobe measuring 2.5 cm. These favor hemangiomas. The gallbladder is distended. No gallbladder wall thickening or pericholecystic fluid. This has progressed in the interval. Normal caliber common bile duct. The pancreas, spleen, and adrenal glands are unremarkable. No hydronephrosis. A few subcentimeter hypodense lesions within the kidneys are again noted. These are technically too small to characterize but favor cysts. The main portal vein is patent. Normal caliber abdominal aorta. The a 9 mm lymph node at the aortic bifurcation image 216 is slightly increased in size. This is likely reactive. No significant pelvic free fluid. The bladder is well-distended. There is mild bladder wall thickening. Stable prominent portacaval lymph nodes. Postoperative changes again noted within the ascending colon. Moderate circumferential thickening involving the distal descending colon, sigmoid colon, and rectum with pericolonic fat stranding. This has progressed in the interval. There is perirectal fat stranding/edema which has slightly progressed. Linear sinus tract extending posteriorly from the rectum to the presacral space remains unchanged. This is best seen image 308. No drainable fluid collections identified. Mild pericolonic/perirectal lymphadenopathy has slightly progressed. This may be reactive. There is a large amount of stool seen throughout the colon. There is distal decompression at the rectosigmoid junction best seen on image 306. Proximal to this site there is a large amount of stool including a 2.7 cm rectal stool ball. Therefore, these findings are concerning for a distal large bowel obstruction due to the decompressed/narrowed rectum. This raises the possibility of underlying stricture. The calcified 2.7 cm rectal stool ball may be impacted and could result in the suspected large bowel obstruction. Thickening of the distal colon and rectum is consistent with a nonspecific colitis. This has progressed in the interval could represent the patient's underlying ulcerative colitis versus a stercoral colitis. No dilated loops of small bowel at this time. IMPRESSION: 1. There is a large amount of stool seen throughout the colon with distal decompression of the large bowel at the rectosigmoid junction. Therefore, these findings are concerning for a distal large bowel obstruction due to the decompressed/narrowed rectum. This raises the possibility of underlying stricture. There is a calcified 2.7 cm rectal stool ball may be impacted and could result in the suspected large bowel obstruction. 2. Thickening of the distal colon and rectum is consistent with a nonspecific colitis. This has progressed in the interval and could represent the patient's underlying ulcerative colitis versus a stercoral colitis. 3. Distended gallbladder. This has progressed in the interval. However, no gallbladder wall thickening or pericholecystic fluid. 4. No significant change in the sinus tract extending posteriorly from the rectum. No drainable fluid collections. 5. Additional findings as described above. ACT 112: Negative or not required by law. Electronically signed by: Sami Handy M.D. 11/17/2022 9:22 AM KUB HISTORY: anal stricture w partial obstruction COMPARISON: CT 11/17/2022 FINDINGS: There is persistent gaseous distention of the large and small bowel with large bowel loops measuring up to 8.5 cm and small bowel loops measuring up to 3 cm. Calcified 2.7 cm structure within the central pelvis again noted. No renal calculi. No ureteral calculi. No pneumoperitoneum or pneumatosis. No fracture. IMPRESSION: 1. Persistent large and small bowel gaseous distention, possibly secondary to a distal obstruction. Continued follow-up is needed. 2. Intraluminal calcification within the rectum again noted. ACT 112: Negative or not required by law. The above report was generated using voice recognition software. It may contain grammatical, syntax or spelling errors. Electronically signed by: Douglas Arana M.D. 11/18/2022 9:42 AM PG Care Time/CCT Total # of Minutes Spent Total Time Spent with Patient: Total time spent is greater than 50% in coordination of care (as documented) at patient's floor/unit and/or counseling patient: Coding Level of Care Code 15092 IN/OBS CONSULT LVL 3,45M Diagnoses Large bowel obstruction K56.609 Crohns disease K50.90
--- NOTE | 2022-11-18 11:13 | Gastrointestinal Consultation ---
Date of Consultation November 18, 2022 Assessment & Plan (1) Stricture of anal canal: Continued, gradual dilation w anal dilators once discharged. (2) Constipation: Miralax BID, to disolve the stool ball from above. (3) Crohns disease: Continue Humira Plan No IP endoscopy planned. Clear liquid diet, IV fluids for hydration. BID Miralax. Antibiotics x total of 10 days. Continue OP f/u w colrectal surgery. Supervising Physician Co-Signing Physician Notes Patient was seen and examined on 11/18 DENNIS Macias whose note reflects our findings and plan. Recent anal stricture dilation. Low grade fever. Imaging reviewed. Patient will likely require outpatient cooonoscopy for better visualization of the rectosigmoid stricture but given very recent dilation will discuss with before definitive plans. Patient needs a good daily bowel regimen. History of Present Illness Reason for Consultation: Large bowel obstruction, fever after anal dilation Requesting Physician: Dr. Callaway Attending Physician: Randy Roth MD History of Present Illness Mr. Catarino Wheeler is a 62-year-old male patient of Dr. Pabon with a history of HTN, Crohn's disease complicated by an anal stricture who underwent dilation of the stricture on November [address] Ward, a [facility] colorectal surgeon. Plan was for further dilation by the pt with progressively larger diameter dilators (These have not yet arrived at the pt's home). On the evening of the anal dilation by CRS, he developed fever and presented to the ED. He was placed on antibiotics IV fluids n.p.o. Imaging on arrival with high fecal load and a 2.7 cm calcified rectal stool ball upstream from the anal stricture. The patient's main problem is abdominal cramping bloating severe spasms. He is incontinent of several small volume thick liquid brown bowel movements per day. Most recent colonoscopy attempt by Dr. Pichardo was aborted in August due to very poor prep though an 8mm polyp was removed. Allergies Allergy/AdvReac Type Severity Reaction Status Date / Time aspirin Allergy Severe HIVES Verified 09/12/22 10:21 oxycodone Allergy Severe Seizure, Unverified 11/17/22 09:09 chills, shakes, eyes rolled back in head Sulfa (Sulfonamide Allergy Severe HIVES Verified 09/12/22 10:21 Antibiotics) Home Medications Medication Instructions Recorded Confirmed Type adalimumab 40 mg/0.8 mL 40 mg subcut DIRECTED 04/11/18 11/17/22 History subcutaneous syringe kit (Humira) cholecalciferol (vitamin D3) 25 1,000 unit PO DAILY 04/11/18 11/17/22 History mcg (1,000 unit) capsule (Vitamin D3) hydrocodone 10 mg-acetaminophen 1 tab PO DIRECTED PRN Pain 04/11/18 11/17/22 History 325 mg tablet ([place]) ascorbic acid (vitamin C) 500 mg 500 mg PO DAILY 11/17/22 11/17/22 History tablet (Vitamin C) lisinopril 10 mg tablet 10 mg PO DAILY 11/17/22 11/17/22 History zinc 50 mg tablet 50 mg PO DAILY 11/17/22 11/17/22 History Patient History Medical History Abdominal fistula Bronchitis Crohns disease Family History Other Family history non-contributory Social History Smoking Status: Never smoker Do You Dip or Chew Tobacco: No; Tobacco Cessation Education Requested by Patient: No Hx Alcohol Use: Yes Alcohol type: hard liquor Hx Substance Use: No Preferred Language: Albanian Communication Ability: Effective 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 Physical Exam Constitutional: WD/WN, vitals as above Eyes: PERRL, conjunctivae normal, anicteric sclerae ENMT: external ear and nose normal, oropharynx normal Neck: trachea midline, no thyromegaly Respiratory: normal respiratory effort, lungs clear to auscultation Cardiovascular: RRR, no murmur, no edema Gastrointestinal (Abdomen): Inspection/Auscultation: + abdomen distended (mild/moderate) and normal bowel sounds Percussion/Palpation: + abdomen tender (very tender over entire abdomen) not rigid/taunt Musculoskeletal: no cyanosis or clubbing, extremities motor strength 5/5 Up ambulating in the room Skin: no rashes, warm and dry Neurologic: patellar DTR's 2+ bilat, sensation intact Psychiatric: A+Ox3, euthymic affect Lymphatic: no cervical or axillary lymphadenopathy Results & Data Vital Signs (Past 12 Hours) Vital Signs Temp Pulse Resp BP Pulse Ox O2 Del Method 11/18/22 07:44 37.2 C 85 19 133/73 96 Room Air 11/18/22 04:00 37.2 C 77 20 110/57 L 97 Room Air 11/17/22 23:22 37.1 C 82 20 118/68 96 Room Air Laboratory Results WBC 6, Hb 9, HCT 28, PLT 244, PT 11, INR 1, NA 134, K4.0, CL 104, CO2 25, BUN 14, CR 0.78, glucose 88 LFTs normal Diagnostic Findings KUB today: There is persistent gaseous distention of the large and small bowel with large bowel loops measuring up to 8.5 cm and small bowel loops measuring up to 3 cm. Calcified 2.7 cm structure within the central pelvis again noted. No renal calculi. No ureteral calculi. No pneumoperitoneum or pneumatosis. No fracture. 1. Persistent large and small bowel gaseous distention, possibly secondary to a distal obstruction. Continued follow-up is needed. 2. Intraluminal calcification within the rectum again noted. CTAP w IV on 11/17/22: 1. There is a large amount of stool seen throughout the colon with distal decompression of the large bowel at the rectosigmoid junction. Therefore, these findings are concerning for a distal large bowel obstruction due to the decompressed/narrowed rectum. This raises the possibility of underlying stricture. There is a calcified 2.7 cm rectal stool ball may be impacted and could result in the suspected large bowel obstruction. 2. Thickening of the distal colon and rectum is consistent with a nonspecific colitis. This has progressed in the interval and could represent the patient's underlying ulcerative colitis versus a stercoral colitis. 3. Distended gallbladder. This has progressed in the interval. However, no gallbladder wall thickening or pericholecystic fluid. 4. No significant change in the sinus tract extending posteriorly from the rectum. No drainable fluid collections. 5. Additional findings as described above.
--- NOTE | 2022-11-18 15:12 | Hospitalist Progress Note ---
Date of Service November 18, 2022 Assessment & Plan (1) Fever: (2) Large bowel obstruction: (3) Colitis: (4) Gastrointestinal anastomotic stricture: (5) Gallbladder dilatation: Plan 62yoM with PMHx significant for chronic Crohn's diagnosed at age 17, anal stenosis s/p recent anal dilatation on 11/15/22 and HTN admitted 11/17 with fever and large bowel obstruction. He is being managed for the following: Large Bowel Obstruction/Crohn's/Anal Stenosis Possible anal stenosis causing obstruction Possible colitis Possible sepsis POA Hx of Crohn's since age 17, currently treated with Humira, follows with [facility] Has been having chronic constipation episodes since April, notes fecal overflow incontinence occasionally. Last colonoscopy August 2022 aborted due to poor prep but noted anal stricture and rectal polyp. -Had anal exam under anesthesia with dilation of anal canal. States he developed LLQ pain later that evening. Subsequently developed a fever that would not resolve so presented for evaluation; 38.3C noted at ED. Admitting labs: CRP 10.94, Pro-Lukasz 2.01, NA 132, WBC WNL, hemodynamically stable. Pulse rate elevated. Temperature 38.3 C. Lactate WNL. Admitting CTAP: concerning for large bowel obstruction, stricture, impacted rectal stool ball measuring 2.7cm, nonspecific colitis and a progressively distended gallbladder with no signs of acute cholecystitis. Admitting USG abdomen: Distended gallbladder with minimal sludge, no stones or sonographic evidence of acute cholecystitis. Patient started on Zosyn 11/17, continue Follow admitting blood culture. Pain management, nausea control. Continue with Bentyl, as needed hydromorphone, Senokot, MiraLAX twice daily, and Zofran as needed. Patient reports pain getting better, fever getting better. WBC has been WNL. GI evaluated, clear liquid diet, no inpatient endoscopy, twice daily MiraLAX, antibiotics for 10 days, follow-up with colorectal surgery. General surgery on board, no plans for surgical intervention at this time. Follow-up with colorectal surgery upon discharge. Gallbladder Distention: CT abd/pelvis noted a progressively distended gallbladder with no signs of acute cholecystitis. USG abdomen [see above]. Follow-up with GI for monitoring. HTN: BP currently in normal range. Resume home blood pressure meds as able. CODE STATUS: Full code DVT prophylaxis: Lovenox SQ Dispo: Med/Surg with tele. Admission and Anticipated Discharge Date Admission Date: November 17, 2022 Subjective Patient seen and examined at bedside as a follow-up of large bowel obstruction in the setting of history of anal stenosis/Crohn's disease. Patient was sitting up in chair, on room air, NAD, reports intermittent lower belly pain, reports improving fever, has not had good bowel movement since 11/14, reports having small smears, denied chest pain or feeling of heart racing. Denies any pain or burning with passing urine. Of note, patient had dilatation of anal canal 11/15/2022 as an outpatient. Physical Exam Physical Exam: GENERAL: Alert and oriented x3. NAD, on RA. HEENT: No pallor, no icterus. Pupils equal, round and reactive to light. Oral mucosa moist. NECK: No JVD, no neck masses. HEART: S1 and S2 heard. Regular rate and rhythm. No murmur, no gallop. RESPIRATORY SYSTEM: Normal AP diameter. No accessory muscle use. No wheezing, no crackles. ABDOMEN: Soft, bowel sounds present, LLQ tender, mild distention. CENTRAL NERVOUS SYSTEM: No facial droop. Speech is clear. Obeys simple commands. Moves extremities. EXTREMITIES: No edema, no erythema seen. Results & Data Results & Data Vital Signs (Past 12 Hours) Vital Signs Temp Pulse Resp BP Pulse Ox O2 Del Method 11/18/22 11:50 37.4 C 93 H 19 120/75 98 Room Air 11/18/22 07:44 37.2 C 85 19 133/73 96 Room Air 11/18/22 04:00 37.2 C 77 20 110/57 L 97 Room Air
[2022-11-18] MEDS: ENOXAPARIN INJ 40 MG/0.4 ML SYR SQ SCH (15:52)
[2022-11-18] MEDS ORDERED: LORazepam 0.5 MG TAB PO STA (19:01)
[2022-11-18] MEDS: POLYETHYLENE (MIRALAX) 17 GM PACK PO SCH (20:14)
[2022-11-18] MEDS: ACETAMINOPHEN 1,000 MG/100 ML VIAL IV PRN (20:20)
[2022-11-18] MEDS ORDERED: Nursing to Pharmacy Communication SCH (22:00)
[2022-11-19] MEDS: HYDROmorphone INJ 0.5 MG/0.5 ML SYR IV PRN (03:43)
[2022-11-19] MEDS: DICYCLOMINE HCL 10 MG CAP PO SCH ×2 (06:30→11:27)
[2022-11-19 07:27] LABS: Basophils # (auto) 0.03 K/uL (0-0.2); Basophils % (auto) 0.5 %; Eosinophils # (auto) 0.03 K/uL (0-0.50); Eosinophils % (auto) 0.5 %; Hematocrit (blood only) 30.2 % (42.0-52.0); Hemoglobin 9.5 g/dl (14.0-18.0); Immature Granulocytes # (auto) 0.02 K/uL (0.01-0.20); Immature Granulocytes % (auto) 0.3 %; Lymphocytes # (auto) 1.55 K/uL (1.2-3.4); Lymphocytes % (auto) 25.7 %; Mean Corpuscular Hemoglobin 25.5 pg (25.0-34.0); Mean Corpuscular Hgb Conc 31.5 g/dL (32.0-36.0); Mean Platelet Volume 9.8 fL (9.4-12.4); Monocytes # (auto) 1.06 K/uL (0.11-0.59); Monocytes % (auto) 17.5 %; Neutrophils # (auto) 3.35 K/uL (1.40-6.50); Neutrophils % (auto) 55.5 %; Platelet Count 307 K/uL (130-400); RDW Coefficient of Variation 14.5 % (11.5-14.5); RDW Standard Deviation 42.8 fL (36.4-46.3); Red Blood Count 3.73 M/uL (4.70-6.10); White Blood Count 6.04 K/ul (4.8-10.8)
[2022-11-19 07:44] LABS: Albumin Level 2.9 gm/dl (3.4-5.0); BUN Creatinine Ratio 12.5 (10-20); Bilirubin,Total 0.3 mg/dl (0.2-1.0); Calcium 8.3 mg/dl (8.6-10.3); Creatinine Clr Calc Pharmacy 100.1 ml/min; Est GFR (African American) 111.7 ml/min; Est GFR (Non-African American) 96.4 ml/min; Magnesium 1.6 mg/dl (1.7-2.4); Phosphorus 3.1 mg/dl (2.5-4.9); Potassium 3.8 mmol/L (3.5-5.1); Total Protein 5.9 gm/dl (6.0-8.3)
[2022-11-19] MEDS: DOCUSATE SODIUM/SENNA 50/8.6MG TAB PO SCH (08:00)
[2022-11-19] MEDS: POLYETHYLENE (MIRALAX) 17 GM PACK PO SCH (08:00)
[2022-11-19] MEDS: PIPERACILLIN/TAZOBACTAM 4.5 GM in DEXTROSE 5% 100 ML IV SCH (08:03)
--- NOTE | 2022-11-19 10:05 | Gastroenterology Progress Note ---
Date of Service November 19, 2022 Assessment & Plan (1) Stricture of anal canal: Plan: Continued, gradual dilation w anal dilators once discharged. (2) Constipation: Plan: Miralax BID, to disolve the stool ball from above. (3) Crohns disease: Plan: Continue Humira Plan Will plan for OP Colonoscopy Friday - sight to be determined - likely [facility]. Our office will call him to arrange. In the meanwhile, would stop narcotics. Only dicyclomine as needed for cramping pain though admittedly not real effective discussed w pt that he will have spasmy pain. Low residue diet. Miralax 3x/day. Sennakot BID. Colonoscopy prep on Fri/Friday (2 day prep) - our office will call him with the instructions. No GI contraindication to discharge. Admission and Anticipated Discharge Date Admission Date: November 17, 2022 Supervising Physician Co-Signing Physician Notes Patient was seen and examined on 11/19 with DENNIS Reyes whose note reflects our findings and plan. Bowel regimen provided to patient. Plan discussed with patient as well as his daughter. Colonoscopy to be done Friday as outpatient once he has been on bowel regimen for several days and prep to be started early Friday at home. Rectosigmoid stricture to be evaluated at that time with possible dilation if needed. Subjective Crohn's pt, underwent anal stricture dilation11/15/2022. Presented for fever/chills which resolved w IV antibiotics. CT, KUB w anal stricture and dilation upstream. Leaking brown thick stool on BID Miralax. Pt c/o significant intermittent cramping lower abd pain but says overall pain is improved and stomach is less distended than yesterday. Review of Systems Review of Systems: ROS: Gen: +weakness, fevers, weight loss Eyes: No eye redness, or pain, no recent vision changes Resp: No SOB, no cough Cardio: No palpitations/irregular beats, no chest pain GI: Per HPI, otherwise (-) : Denies pain on urination Skin: No jaundice, itching or new rashes Hem: no excessive bleeding/bruising. Physical Exam Constitutional: WD/WN, vitals as above Eyes: PERRL, conjunctivae normal, anicteric sclerae ENMT: external ear and nose normal, oropharynx normal Neck: trachea midline, no thyromegaly Respiratory: normal respiratory effort, lungs clear to auscultation Cardiovascular: RRR, no murmur, no edema Gastrointestinal (Abdomen): Inspection/Auscultation: + abdomen distended (mild/moderate) and normal bowel sounds Percussion/Palpation: + abdomen tender (very tender over entire abdomen) Musculoskeletal: no cyanosis or clubbing, extremities motor strength 5/5 Skin: no rashes, warm and dry Neurologic: patellar DTR's 2+ bilat, sensation intact Psychiatric: A+Ox3, euthymic affect Lymphatic: no cervical or axillary lymphadenopathy Results & Data Vital Signs (Past 12 Hours) Vital Signs Temp Pulse Pulse Resp BP Pulse Ox O2 Del Method 11/19/22 07:44 36.9 C 77 18 134/78 97 Room Air 11/19/22 07:02 77 11/19/22 04:00 37.2 C 80 20 136/78 96 Room Air 11/18/22 23:43 37.1 C 84 20 123/74 97 Room Air 11/18/22 21:59 80 Laboratory Results WBC 6, Hb 9.5, Hct 30, Plts 307, Na 134, K 3.8, Cl 102, CO2 22, BUN 10, Cr 0.8, glucose 92.
[2022-11-19] MEDS: MAGNESIUM SULFATE / D5W 1 GM/100 ML BAG IV SCH ×2 (10:29→11:27)
[2022-11-19] MEDS ORDERED: LORazepam 0.5 MG TAB PO PRN (11:18)
--- NOTE | 2022-11-19 11:19 | Surgery Progress Note ---
Date of Service November 19, 2022 Assessment & Plan (1) Large bowel obstruction: Plan: Patient here with concern with large bowel obstruction 2/2 crohns and rectosigmoid stricture +/- stool ball he feels mildly better today and having a little more stool output after starting sennakot and miralax abdomen remains distended and tender in the LLQ after discussions with GI it appears plan will be for repeat bowel prep over the wknd and outpatient colonoscopy on friday he may adv diet as tolerates from our standpoint no plans for surgical intervention here. he states he may be dispo'd later today we will follow peripherally, but call back with any questions/concerns (2) Gastrointestinal anastomotic stricture: (3) Crohns disease: Admission and Anticipated Discharge Date Admission Date: November 17, 2022 Supervising Physician Co-Signing Physician Notes Patient seen and examined, labs reviewed, agree with above. Status post dilation of anal stricture admitted with fevers and fecal retention consistent with large bowel partial obstruction. He was started to have some bowel movements and his pain is improved. He is afebrile stable vitals, his abdomen is soft, nontender, nondistended. He has plans for colonoscopy with dilation of the stricture this Friday. No acute surgical intervention indicated at this t dominga. If he does require surgical intervention, would recommend evaluation by colorectal surgeon given his history of Crohn's in the anal and rectal strictures. May advance diet as tolerated to low fiber, surgery will follow peripherally, call with questions or concerns Subjective Patient states he feels mildly better than yesterday. He is tolerating clears, no n/v. He is passing flatus and reports his stools are becoming more substantial. Physical Exam Physical Exam: awake/alert, sitting in chair Gastrointestinal (Abdomen): Inspection/Auscultation: + abdomen distended Percussion/Palpation: + abdomen tender (in LLQ) and abdomen soft Results & Data Vital Signs (Past 12 Hours) Vital Signs Temp Pulse Pulse Resp BP Pulse Ox O2 Del Method 11/19/22 07:44 36.9 C 77 18 134/78 97 Room Air 11/19/22 07:02 77 11/19/22 04:00 37.2 C 80 20 136/78 96 Room Air 11/18/22 23:43 37.1 C 84 20 123/74 97 Room Air PG Care Time/CCT Total # of Minutes Spent Total Time Spent with Patient: Total time spent is greater than 50% in coordination of care (as documented) at patient's floor/unit and/or counseling patient: Coding Level of Care Code 60033 SUB INP/OBS CARE Diagnoses Large bowel obstruction K56.609 Gastrointestinal anastomotic stricture K91.30 Crohns disease K50.90
[2022-11-19] MEDS: SODIUM CHLORIDE 0.9% 1000ML 1,000 ML IV SCH (11:29)
[2022-11-19] MEDS ORDERED: KETOROLAC TROMETHAMINE 15 MG/ML VIAL IV PRN (12:03)
[2022-11-19] MEDS: ENOXAPARIN INJ 40 MG/0.4 ML SYR SQ SCH (13:22)
--- NOTE | 2022-11-19 15:51 | Discharge Summary ---
Date of Service November 19, 2022 Admission HPI Per Admitting Provider Pt is a 62yoM with PMHx significant for chronic Crohn's diagnosed at age 17, anal stenosis s/p recent anal dilatation on 11/15/22 and HTN who is being admitted with fever and a noted large bowel obstruction. he notes he has had a Hx of Crohn's since age 17, currently treated with Humira and [facility]. States that he has been having chronic constipation episodes since April. he states he has episodes of fecal overflow incontinence occasionally but does not "push"/strain to have a BM. Last colonoscopy was August 2022 an d he notes it was aborted due to poor prep. chart review shows that they noted an anal stricture and rectal polyp. He notes that on , he had an anal exam under anesthesia with dilation of anal canal. States he developed LLQ pain later that evening. Also subsequently developed fevers as high as 101 which caused him to present to the ED. he notes that the fevers would go away after taking OTC meds but would come right back. ED Course: highest temperature of 38.3, elevated CRP of 10.94, procal of 2.01 and Na of 132. WBC wnl, hemodynamically stable. CT abd pelvis concerning for large bowel obstruction, stricture, impacted rectal stool ball measuring 2.7cm, nonspecific colitis and a progressively distended gallbladder with no signs of acute cholecystitis. Treated with Dilaudid, Tylenol and Zosyn in the ED. Admission Exam Per Admitting Provider General: Alert, oriented. No acute distress Psych: Appropriate mood and affect Neuro: No gross deficits HEENT: NC/AT CV: RRR, Normal s1, s2. No murmurs appreciated Resp: Breath sounds clear bilaterally, no increased effort of breathing. Abdomen: Soft, tender in both LLQ and LUQ. No guarding. Extremities: No edema in lower extremities bilaterally. Principal Diagnosis Large bowel obstruction secondary to anal stenosis in the setting of Crohn's disease Possible colitis Constipation Discharge Exam GENERAL: Alert and oriented x3. NAD, on RA. HEENT: No pallor, no icterus. Pupils equal, round and reactive to light. Oral mucosa moist. NECK: No JVD, no neck masses. HEART: S1 and S2 heard. Regular rate and rhythm. No murmur, no gallop. RESPIRATORY SYSTEM: Normal AP diameter. No accessory muscle use. No wheezing, no crackles. ABDOMEN: Soft, bowel sounds present, LLQ tender -- improving, mild distention. CENTRAL NERVOUS SYSTEM: No facial droop. Speech is clear. Obeys simple commands. Moves extremities. EXTREMITIES: No edema, no erythema seen. Discharge Data Allergies Allergy/AdvReac Type Severity Reaction Status Date / Time aspirin Allergy Severe HIVES Verified 09/12/22 10:21 oxycodone Allergy Severe Seizure, Unverified 11/17/22 09:09 chills, shakes, eyes rolled back in head Sulfa (Sulfonamide Allergy Severe HIVES Verified 09/12/22 10:21 Antibiotics) Consultations 11/17/22 10:59 ED Decision to Admit Stat 11/17/22 13:07 Consult Gastroenterology Routine 11/18/22 09:19 Consult General Surgery Routine Ordered Studies 11/17/22 06:55 CT abd pelvis IV con only Stat 11/17/22 14:33 US abdomen limited Routine Hospital Course (1) Fever: (2) Large bowel obstruction: (3) Colitis: (4) Gastrointestinal anastomotic stricture: (5) Gallbladder dilatation: Plan 62yoM with PMHx significant for chronic Crohn's diagnosed at age 17, anal stenosis s/p recent anal dilatation on 11/15/22 and HTN admitted 11/17 with fever and large bowel obstruction. He was managed for the following: Large Bowel Obstruction/Crohn's/Anal Stenosis Possible anal stenosis causing obstruction Possible colitis Possible sepsis POA Hx of Crohn's since age 17, currently treated with Humira, follows with [facility] Has been having chronic constipation episodes since April, notes fecal overflow incontinence occasionally. Last colonoscopy August 2022 aborted due to poor prep but noted anal stricture and rectal polyp. -Had anal exam under anesthesia with dilation of anal canal. States he developed LLQ pain later that evening. Subsequently developed a fever that would not resolve so presented for evaluation; 38.3C noted at ED. Admitting labs: CRP 10.94, Pro-Lukasz 2.01, NA 132, WBC WNL, hemodynamically stable. Pulse rate elevated. Temperature 38.3 C. Lactate WNL. Admitting CTAP: concerning for large bowel obstruction, stricture, impacted rectal stool ball measuring 2.7cm, nonspecific colitis and a progressively distended gallbladder with no signs of acute cholecystitis. Admitting USG abdomen: Distended gallbladder with minimal sludge, no stones or sonographic evidence of acute cholecystitis. Patient started on Zosyn 11/17, continue Augmentin on discharge to complete the course for colitis. Follow admitting blood culture. Pain management, nausea control. Opiate pain medication has been stopped due to concern for ongoing constipation. Continue with Bentyl, Senokot, MiraLAX 3 times daily. Patient reports moving small bowel movements yesterday evening, reports been getting better. Patient has been afebrile. WBC normal. GI and general surgery evaluated, okay to discharge from the point of view. Patient to follow-up with GI for colonoscopy next week. Patient to follow-up with his own colorectal surgeon in 1 to 2 weeks time upon discharge. Gallbladder Distention: CT abd/pelvis noted a progressively distended gallbladder with no signs of acute cholecystitis. USG abdomen [see above]. Follow-up with GI for monitoring. HTN: BP currently in normal range. Resume home blood pressure meds as able. CODE STATUS: Full code DVT prophylaxis: Lovenox SQ Patient being discharged home with following instruction at the point of discharge: Follow-up with your primary care physician within a week time and likely you will need labs CBC/CMP/magnesium/phosphorus. Follow-up with your colorectal surgery as an outpatient in 1 to 2 weeks time upon discharge. You were evaluated for large bowel obstruction/anal stenosis by general surgery and GI doctor while inpatient. You are being discharged on full liquid diet, slowly advance to low fiber soft diet until further evaluation by your GI doctor or colorectal surgery as an outpatient. Also continue to take your laxatives as prescribed. You will most likely get an outpatient colonoscopy on Friday at [facility] at 8:30 AM, the office will call you with colonoscopy prep instructions and details. You will be discharged on antibiotic for colitis to complete the course. Probiotics will be added. For your abdominal pain, your home opiate medications has been discontinued as it causes more constipation. For mild pain, you can use [id number] Tylenol. You are also being discharged on Bentyl for abdominal spasms. For severe pain you can use Toradol as prescribed. If ongoing pain or worsening pain, you will need further evaluation either by your colorectal surgery or your GI doctor or your PCP office or call to the ER immediately. Take your medications as prescribed. Please make sure that you are able to get your medications today by calling your pharmacy before you leave the hospital so that your treatment continuity is not broken. Home Health Attestation I certify that this patient is under my care and that I, or a physicians reference assistant working with me, had a face to-face encounter that meets the home health [id number] encounter requirements with this patient. The encounter with the patient was in whole, or in part, for the following medical condition, which is the primary reason for home health care (list medical condition): I certify that, based on my findings, the following services are medically necessary home health services: My clinical findings support the need for the above services because: Further, I certify that my clinical findings support that this patient is homebound (i.e. absences from home require considerable and taxing effort and are for medical reasons or baptism services or infrequently or of short duration when for other reasons) because: Certification for Home Health Services: Based on the above findings, I certify that this patient is confined to the home and needs intermittent senior living care, physical therapy and/or speech therapy or continues to need occupational therapy. The patient is under my care, and I have initiated the establishment of the plan of care. This patient will be followed by a physician who will periodically review the plan of care. Total Time Total Time Spent Total Time Spent (In Minutes): 45 Discharge Plan Discharge Items Patient Disposition: Home - Self-Care Reason For Visit: ABDOMINAL PAIN Discharge Diagnosis: Large bowel obstruction secondary to anal stenosis in the setting of Crohn's disease Possible colitis Constipation Activity: Resume your previous activity Non-emergency contact: Primary Care Provider Call non-emergency contact if: you have any medication questions, your symptoms worsen and your temperature is above 101 Follow-up/Referrals: Aguilar Downing MD [Physician] - (The GI office will call you with instructions for your procedure on 11/25/2022.) Denzel Pabon MD [Primary Care Provider] - (Date & Time 11/26/2022 11:20 AM Provider Denzel Pabon MD Department Family [facility] ) Michelle Ward MD [Outside Practitioners] - (Date & Time 12/10/2022 11:30 AM Provider [facility] Diet: Full liquid Addtl Attending Provider Instructions: Follow-up with your primary care physician within a week time and likely you will need labs CBC/CMP/magnesium/phosphorus. Follow-up with your colorectal surgery as an outpatient in 1 to 2 weeks time upon discharge. You were evaluated for large bowel obstruction/anal stenosis by general surgery and GI doctor while inpatient. You are being discharged on full liquid diet, slowly advance to low fiber soft diet until further evaluation by your GI doctor or colorectal surgery as an outpatient. Also continue to take your laxatives as prescribed. You will most likely get an outpatient colonoscopy on Friday at [facility] at 8:30 AM, the office will call you with colonoscopy prep instructions and details. You will be discharged on antibiotic for colitis to complete the course. Probiotics will be added. For your abdominal pain, your home opiate medications has been discontinued as it causes more constipation. For mild pain, you can use [id number] Tylenol. You are also being discharged on Bentyl for abdominal spasms. For severe pain you can use Toradol as prescribed. If ongoing pain or worsening pain, you will need further evaluation either by your colorectal surgery or your GI doctor or your PCP office or call to the ER immediately. Take your medications as prescribed. Please make sure that you are able to get your medications today by calling your pharmacy before you leave the hospital so that your treatment continuity is not broken. Pending Studies at Discharge: Yes Stand-Alone Forms: My [facility], Smoking Cessation Medications and DC Order Prescriptions: New dicyclomine 10 mg Capsule 10 mg PO ACHS Qty: 60 0RF ketorolac 10 mg tablet 10 mg PO Q8H PRN (Reason: pain (scale score 7-10)) 3 Days Qty: 9 0RF polyethylene glycol 3350 [Miralax] 17 gram Powder In Packet 17 g PO TID Qty: 60 0RF sennosides-docusate sodium [Senokot-S] 8.6-50 mg Tablet 1 tab PO BID Qty: 60 0RF amoxicillin-pot clavulanate 875-125 mg tablet 1 tab PO BID 9 Days Qty: 18 0RF Probiotic 3 billion cell capsule 3,000 mmu cells PO DAILY 14 Days Qty: 14 0RF Rx Instructions: administer with a meal Continued Humira 40 mg/0.8 mL Syringe Kit 40 mg SUBCUT DIRECTED Rx Instructions: EVERY 2 WEEKS ON SUNDAYS. cholecalciferol (vitamin D3) [Vitamin D3] 1,000 unit Capsule 1,000 unit PO DAILY ascorbic acid (vitamin C) [Vitamin C] 500 mg Tablet 500 mg PO DAILY lisinopril 10 mg tablet 10 mg PO DAILY zinc 50 mg Tablet 50 mg PO DAILY Discontinued hydrocodone-acetaminophen [[place]] 10-325 mg Tablet 1 tab PO DIRECTED PRN (Reason: Pain) Discharge Orders: Discharge Order (Routine); Ordered 11/19/22 Ordered By: Randy Roth Admission Data Admit Date/Time: 11/17/22 11:47 Attending Provider: Randy Roth Admit Provider: Mira Callaway Primary Care Provider: Denzel Pabon Other Providers: Mira Callaway ; Fran Cason Jr ; Ernie García ; Denzel Cronin ; Tamie Mendez ; Jimi Osei ; Naman Francois ; Heather Fisher ; Amelie Ying ; Shaq Gonzales Jr ; Radha Bernardo ; Joel Hill ; Cyndee Chiang
== END 2022-11-19 16:25 | disposition home or self-care (01) | DRG 872 ==
LOC: ED 06:43 → SUATTDRO 11:47 → 2N 11:47
DX: K50.118 Crohn's disease of large intestine with other complication; Z88.6 Allergy status to analgesic agent; Z88.2 Allergy status to sulfonamides; K59.09 Other constipation; I10 Essential (primary) hypertension; A41.9 Sepsis, unspecified organism; K50.112 Crohn's disease of large intestine with intestinal obstruction; K62.4 Stenosis of anus and rectum; K82.8 Other specified diseases of gallbladder; Z88.5 Allergy status to narcotic agent; K52.9 Noninfective gastroenteritis and colitis, unspecified